=== PATIENT | male | born 1940 | race African-American/Black ===

== ENCOUNTER 2016-06-12 09:27 | Inpatient (IN) ==
[2016-06-12] MEDS ORDERED: D5 1/2 NS 500 ML IV ONE (09:30)
[2016-06-12] MEDS ORDERED: BOOSTRIX VACCINE IM ONE (09:31)
[2016-06-12] MEDS ORDERED: XYLOCAINE-MPF 1% INJ ONE (10:18)
--- NOTE | 2016-06-12 10:40 | Diag Imaging Result Document ---
PROCEDURE NAME: HEAD/C-SPINE W/O CONTRAST - 06/12/2016 CT HEAD WITHOUT CONTRAST: A dose-reduction protocol was used. COMPARISON: 05/01/2016. FINDINGS: There are atrophic changes and substantial chronic microvascular ischemic changes similar to the previous exam. 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 There is no discrete new infarct identified, although acute infarcts may not be immediately visible. There is subcutaneous soft tissue swelling at the left forehead. There is no evidence of intracranial hemorrhage, mass effect, or midline shift. There is no skull fracture. IMPRESSION: 1. Chronic ischemic changes similar to prior. 2. Soft tissue swelling at left forehead. No evidence of intracranial injury. No intracranial hemorrhage or mass effect. CT CERVICAL SPINE WITHOUT CONTRAST: A dose-reduction protocol was used. Axial, sagittal, and coronal images are obtained. COMPARISON: No comparison exam. FINDINGS: There is severe multilevel degenerative disease. There is associated mild multilevel spinal stenosis. There is no fracture or subluxation identified. There is no precervical soft tissue swelling identified. There are atherosclerotic calcifications noted at the bilateral carotid bulb regions. IMPRESSION: 1. Severe multilevel degenerative disease with multilevel mild spinal stenosis. 2. No evidence of fracture or subluxation.
--- NOTE | 2016-06-12 10:41 | Diag Imaging Result Document ---
PROCEDURE NAME: FACIAL BONES W/O CONTRAST - 06/12/2016 CT FACIAL BONES WITHOUT CONTRAST: TECHNIQUE: A dose reduction protocol was used. Axial and coronal images are obtained. No comparison exam. FINDINGS: There is soft-tissue swelling at the left periorbital region. There is no retrobulbar orbital hematoma identified. The globes of the orbits appear grossly intact. There is no fracture identified. There is mild paranasal sinus mucosal thickening. There is no substantial paranasal sinus fluid seen. There is some deviation of the anterior nasal septum to the left which is compatible with longstanding change. IMPRESSION: No evidence of fracture. Mild paranasal sinus disease noted.
--- NOTE | 2016-06-12 10:47 | Diag Imaging Result Document ---
PROCEDURE NAME: CHEST-PORTABLE - 06/12/2016 PORTABLE CHEST: COMPARISON: Compared to 05/15/2016. FINDINGS: Previously there was a right-sided PICC line. This has been removed. No contusions or pneumothoraces. The mediastinum is not widened. There are several old right rib fractures. No infiltrates or effusions. IMPRESSION: Negative chest.
[2016-06-12 12:45] LABS: MANUAL DIFF NEEDED? NO
[2016-06-12 12:52] LABS: BASO% 0.1 % (0.0-0.8); HEMATOCRIT 32.3 % (42.0-52.0); HEMOGLOBIN 10.6 g/dL (14.0-18.0); LYMPH# 1.06 X1000 (1.2-3.4); LYMPH% 12.2 % (20.5-51.1); MCH 27.2 PG (27-31); MCHC 32.8 g/dL (33-37); MONO# 0.62 X1000 (0.11-0.59); MONO% 7.1 % (1.7-9.3); MPV 11.2 FL (7.4-10.4); NEUT% 80.6 % (42.2-75.2); PLT 134 X1000 (130-400); RBC 3.89 XMIL (4.7-6.1)
[2016-06-12 13:01] LABS: INR 1.02; PROTIME 10.7 Seconds (9.2-11.7); PTT 26.3 Seconds (22.0-36.0)
[2016-06-12 13:04] LABS: ALBUMIN 3.2 g/dL (3.5-5.0); CALCIUM 8.6 mg/dL (8.8-10.2); MAGNESIUM 1.4 mg/dL (1.5-2.7); POTASSIUM 3.8 mmol/L (3.5-5.1); TOTAL BILIRUBIN 0.25 mg/dL (0.20-1.00); TOTAL PROTEIN 7.8 g/dL (6.3-8.3)
--- NOTE | 2016-06-12 13:13 | EKG Report ---
Test Performed on : 06/12/2016 12:40:58 PM Test Reason : Chest Pain Blood Pressure : / mmHG Vent. Rate : 104 BPM Atrial Rate : 104 BPM P-R Int : 120 ms QRS Dur : 072 ms QT Int : 350 ms P-R-T Axes : 078 078 075 degrees QTc Int : 460 ms Sinus tachycardia. Right atrial enlargement Cannot rule out Anterior infarct , age undetermined Abnormal ECG When compared with ECG of 03-MAY-2016 10:47, Vent. rate has decreased BY [address] no longer elevated in Inferior leads ST more elevated in Anterior leads Nonspecific T wave abnormality, improved in Anterolateral leads Unconfirmed Result
[2016-06-12 14:05] LABS: CK INDEX 3.2 (0.0-2.5); CK-MB 6.94 ng/mL (0.0-5.0)
--- NOTE | 2016-06-12 16:32 | PROVIDER DOCUMENTATION ---
This chart was entered by Anoop Jorge Scribe, acting as scribe for Ciara Booker MD. HPI-Head Injury - General Stated Complaint: FALL,LOW BLOOD SUGAR Time Seen by Provider: 06/12/16 09:28 Source: patient, family Allergies/Adverse Reactions: Patient Allergies Allergy/AdvReac Type Severity Reaction Status Date / Time No Known Allergies Allergy Verified 05/01/16 11:22 Home Medications: Home Medication List Medication Instructions Recorded Confirmed Last Taken Type Atorvastatin Calcium 40 mg PO DAILY 10/12/15 05/01/16 04/30/16 History Amlodipine [Norvasc] 10 mg PO DAILY #0 tablet 05/19/16 Unknown Rx Carvedilol [Coreg] 12.5 mg PO Q12HR #0 tablet 05/19/16 Unknown Rx Hydralazine [Apresoline] 75 mg PO TID #0 tablet 05/19/16 Unknown Rx Insulin Detemir [Levemir] 20 unit SUBQ DAILY #0 insuln.pen 05/19/16 Unknown Rx Pantoprazole [Protonix] 40 mg PO DAILY@0700 #30 tablet 05/19/16 Unknown Rx Sucralfate [Carafate Liquid] 1 gm PO Q6HR #0 udc 05/19/16 Unknown Rx Tramadol [Ultram] 50 mg PO Q6H PRN PRN #0 tablet 05/19/16 Unknown Rx Levofloxacin [Levaquin] 500 mg PO DAILY #30 tablet 05/20/16 Unknown Rx - History of Present Illness-Head Injury Nature of Presenting Problem: Patient is a 75 y/o M that presents to the ER via EMS after falling in the road while trying to check mail. He denies chest pain, palpitations, or shortness of breath. He tripped over his feet. EMS reported that his blood sugar was 31mg/ dl. He was given oral glucose which only emmett his blood sugar a few points. he was then given 1/2 amp D50W. patient has laceration above left eye and below left eye. Denies any loc Head Injury Location: reports: other (facial) Other injuries associated with incident:: reports: none Quality of Pain: reports: none Severity: reports: moderate Onset/Duration: reports: abrupt, just prior to arrival Timing: reports: improving Method of Injury: reports: direct blow, fell Any recent trauma/injury?: reports: none Loss of Consciousness: no loss of consciousness Modifying Factors: improves with: nothing Injury Associated Symptoms: denies: back/neck pain, chest pain, dizziness, joint pain, shortness of breath, pain with inspiration, vomiting, weakness Locality of Occurance: Other (the road) Similar Symptoms Previously?: No Recently seen or treated by another doctor?: No Review of Systems - Adult - REVIEW OF SYSTEMS - ADULT Constitutional: reports: no symptoms reported Eyes: denies: decreased vision, blurred vision, double vision Ears, Nose, Mouth & Throat: denies: ear discharge, ear pain, epistaxis Cardiovascular: denies: chest pain, palpitations, syncope Respiratory: reports: no symptoms reported Gastrointestinal: denies: abdominal pain, nausea, vomiting Genitourinary: denies: dysuria, frequency, flank pain, hematuria Musculoskeletal: denies: back pain, joint pain, neck pain Integumentary: reports: other (laceration). denies: hives, itching Neurological: reports: no symptoms reported Psychiatric: reports: no symptoms reported Endocrine: reports: no symptoms reported Hematologic/Lymphatic: reports: no symptoms reported Allergic/Immunologic: reports: no symptoms reported All Other Systems: Reviewed and Negative Past History - Adult - PAST MEDICAL HISTORY-ADULT Review of Records: reports: Old Records Reviewed, Nursing Assessment Review, Medications Reviewed Cardiovascular: reports: HTN, hyperlipidemia Respiratory: reports: COPD - PRIOR SURGERIES/PROCEDURES Surgical/Procedure History: reports: other (abdominal aortic aneursym) - IMMUNIZATION STATUS Childhood Immunizations: See Nurse Assessment Flu Vaccine: See Nurse Assessment - FAMILY HISTORY Family History: reviewed, not pertinent - SOCIAL HISTORY Smoking: cigarettes, less than 1 pack/day Living Situation: family Physical Exam- Neurological - Physical Exam-Neuro Initial Vital Signs Reviewed: Yes General Appearance: alert, no apparent distress Eye Exam: bilateral eye: normal inspection, PERRL HENMT: moist mucous membranes, normal ENT inspection, TMs normal Head Injury: lacerations (laceration to left upper cheek about 2.5 to 3 inches, laceration to left brow about 5 to 6 inches deep into adipose tissue). negative : raccoon eyes, tenderness Neck: non-tender, full range of motion, normal inspection Respiratory: chest non-tender, lungs clear, normal breath sounds, no respiratory distress, no accessory muscle use Cardiovascular: regular rate, rhythm, no edema, no murmur Abdominal Exam: normal bowel sounds, non tender, soft Extremity: normal range of motion, normal inspection, no pedal edema, no calf tenderness, normal capillary refill, pelvis stable service desk team lead Exam: normal hearing, normal speech, PERRL Motor/Sensory: no motor deficit, no sensory deficit Neurologic: grossly normal, no motor/sensory deficits Psych/Mental Status: normal mood/affect, normal thought content, normal thought process, oriented x 3 - Glascow Coma Scale Best Eye Response: (4) open spontaneously Best Verbal Response: (5) oriented Best Motor Response: (6) obeys commands Total Glascow Score: 15 Progress - PLAN OF CARE/RESULTS Progress/Plan/Lab Results: Vital Signs - 8 hr 06/12/16 10:13 06/12/16 11:13 06/12/16 12:45 Temperature 97.6 F Pulse Rate 105 H 101 H 107 H Respiratory Rate 16 12 14 Blood Pressure 196/113 O2 Sat by Pulse Oximetry 99 100 100 06/12/16 14:33 06/12/16 15:30 Temperature Pulse Rate 104 H 106 H Respiratory Rate 12 14 Blood Pressure O2 Sat by Pulse Oximetry 99 99 Laboratory Results - last 24 hr 06/12/16 06/12/16 06/12/16 12:00 12:00 12:00 WBC 8.68 RBC 3.89 L Hgb 10.6 L Hct 32.3 L MCV 83.0 MCH 27.2 MCHC 32.8 L RDW Std Deviation 14.7 H Plt Count 134 MPV 11.2 H Immature Gran % (Auto) 0.0 Neut % (Auto) 80.6 H Lymph % (Auto) 12.2 L [place] % (Auto) 7.1 Eos % (Auto) 0.0 Baso % (Auto) 0.1 Immature Gran # (Auto) 0.00 Neut # (Auto) 6.99 H Lymph # (Auto) 1.06 L [place] # (Auto) 0.62 H Eos # (Auto) 0.00 Baso # (Auto) 0.01 PT INR PTT (Actin FS) Sodium 133 L Potassium 3.8 Chloride 96 L Carbon Dioxide 22 L Anion Gap 15 BUN 19 Creatinine 1.6 H Estimated GFR/1.73 m2 51 BUN/Creatinine Ratio 12 Glucose 70 Calculated Osmolality 267 Calcium 8.6 L Magnesium 1.4 L Total Bilirubin 0.25 AST 26 ALT 14 Alkaline Phosphatase 137 H Creatine Kinase 217 H Creatine Kinase Index 3.2 H CK-MB (CK-2) 6.94 H Troponin T Nbc-W-Vzhwkrzgpzk Pept 7913 H Total Protein 7.8 Albumin 3.2 L Globulin 4.6 Albumin/Globulin Ratio 0.7 06/12/16 06/12/16 12:00 12:00 WBC RBC Hgb Hct MCV MCH MCHC RDW Std Deviation Plt Count MPV Immature Gran % (Auto) Neut % (Auto) Lymph % (Auto) [place] % (Auto) Eos % (Auto) Baso % (Auto) Immature Gran # (Auto) Neut # (Auto) Lymph # (Auto) [place] # (Auto) Eos # (Auto) Baso # (Auto) PT 10.7 INR 1.02 PTT (Actin FS) 26.3 Sodium Potassium Chloride Carbon Dioxide Anion Gap BUN Creatinine Estimated GFR/1.73 m2 BUN/Creatinine Ratio Glucose Calculated Osmolality Calcium Magnesium Total Bilirubin AST ALT Alkaline Phosphatase Creatine Kinase Creatine Kinase Index CK-MB (CK-2) Troponin T 0.020 Tst-Z-Gpllkradtjz Pept Total Protein Albumin Globulin Albumin/Globulin Ratio Orders Category Date Time Status Cardiac Monitoring DIRECTED Care 06/12/16 10:19 Active FSBS [Finger Stick Blood Sugar (ED)] DIRECTED Care 06/12/16 09:31 Active Saline Loc NOW Care 06/12/16 09:30 Active Saline Loc NOW Care 06/12/16 10:19 Active Suture Tray Set-Up DIRECTED Care 06/12/16 10:18 Active Wound Care DIRECTED Care 06/12/16 09:31 Active Diabetic Diet Diet 06/12/16 15:59 Active CHEST-PORTABLE [RAD] Stat Exams 06/12/16 09:30 Completed FACIAL BONES W/O CONTRAST [CT] Stat Exams 06/12/16 09:30 Completed HEAD/C-SPINE W/O CONTRAST [CT] Stat Exams 06/12/16 09:30 Completed CBC WITH ELECTRONIC DIFF [HEME] Stat Lab 06/12/16 12:00 Completed CK PROFILE [SP CHEM] Stat Lab 06/12/16 12:00 Completed COMPREHENSIVE METABOLIC PANEL [CHEM] Stat Lab 06/12/16 12:00 Completed MAGNESIUM [CHEM] Stat Lab 06/12/16 12:00 Completed PRO B-NATRIURETIC PEPTIDE Stat Lab 06/12/16 12:00 Completed PROTIME WITH INR [COAG] Stat Lab 06/12/16 12:00 Completed PTT [COAG] Stat Lab 06/12/16 12:00 Completed TROPONIN T Stat Lab 06/12/16 12:00 Completed UA NIMS W/REFLEX CULT [URINALYSIS] Stat Lab 06/12/16 10:19 Uncollected Dextrose 5%-0.45% NaCl Inj [D5 1/2 Ns] 500 ml Med 06/12/16 09:30 Discontinued IV 150 mls/hr Diph,Pertuss(Acell),Tet Vac/Pf [Boostrix Vaccine] Med 06/12/16 09:31 Discontinued 0.5 ml IM .ONCE ONE Lidocaine 1% Pf [Xylocaine-Mpf 1%] Med 06/12/16 10:18 Discontinued See Dose Instructions INJ NOW ONE EKG [EKG] Stat Ther 06/12/16 10:19 Draft Result Diagrams: 06/12/16 12:00 06/12/16 12:00 - EKG 1 Time of EKG reading by physician:: 12:40 EKG Read and Signed by:: Ciara Booker EKG Interpretation (*Must complete 3 of following elements*): Abnormal Rate: 104 Rhythm: Sinus tachycardia [place]: normal QRS: normal [place] Interval: normal ST Wave: non-specific ST changes Comments: YOS[facility] - CT/MRI 1 CT Study: Cervical Spine, Head Impression: Abnormal CT Results: head:chronic ischemic changes/no injury, cspine-no fx, sever DJD 2 CT Study: other (facial bones) Impression: Abnormal CT Results: no fx, mild paranasal sinus dx - CONSULTS/PCP/HOSPITALIST Notification #1 *Consult/PCP/Hospitalist*: Time Discussed: 16:25 Consult Disposition: Admit Procedures - LACERATION/WOUND REPAIR/FB Face Wound Location: Other: cheek below left eye Wound Length: 3.5c Wound's Depth, Shape: linear Wound Explored/Foreign Body: clean, no foreign body found Irrigated with Saline?: No Prepped with: Hibiclens, Kit Utilized, Sterile Drapes Applied Anesthetic: 1%, Lidocaine/Xylocaine Volume of Anesthetic (ml's): 8 Wound Repaired with: Sutures Suture Size/Type: 6.0, Nylon Number of Sutures: 4 Sterile Dressing Applied?: No Splint Applied?: No Sling Applied?: No Post Procedure Neurovascular Exam: Intact Left Eye Wound Location: Other: brow Wound Length: 6.5cm Wound's Depth, Shape: into muscle, linear Wound Explored/Foreign Body: clean, no foreign body found Irrigated with Saline?: No Prepped with: Hibiclens, Kit Utilized, Sterile Drapes Applied Anesthetic: 1%, Lidocaine/Xylocaine Volume of Anesthetic (ml's): 14 Wound Repaired with: Sutures Suture Size/Type: 6.0, Nylon Number of Sutures: 8 Layer Closure?: Yes Deep Layer Suture Size/Type: 5.0, Vicryl Number Deep Layer Sutures: 2 Sterile Dressing Applied?: No Splint Applied?: No Sling Applied?: No Post Procedure Neurovascular Exam: Intact Departure - Departure Time of Disposition Decision: 16:26 DIAGNOSIS: Elevated CK, Elevated CK-MB level Fall from standing Qualifiers: Encounter type: initial encounter Qualified Code(s): W19.XXXA - Unspecified fall, initial encounter Head injury without concussion or intracranial hemorrhage Qualifiers: Encounter type: initial encounter Qualified Code(s): S09.90XA - Unspecified injury of head, initial encounter Face lacerations Qualifiers: Encounter type: initial encounter Qualified Code(s): S01.81XA - Laceration without foreign body of other part of head, initial encounter Disposition: ADMITTED INPATIENT 09 Certified Medical Emergency: Emergent Condition: Stable Referrals and Follow-Ups: None,PCP [Primary Care Provider] - This chart was documented by the indicated scribe, (Anoop Jorge, Scribe) and accurately reflects the services I performed and decisions made by me, Ciara Booker MD, as attested by the provider's signature.
[2016-06-12] MEDS ORDERED: APRESOLINE IV ONE ×2 (17:44→18:10)
[2016-06-12] MEDS ORDERED: ULTRAM PO PRN (19:34)
[2016-06-12] MEDS: CARAFATE LIQUID PO SCH (20:00)
[2016-06-12] MEDS: NS 1,000 ML IV SCH (20:00)
[2016-06-12] MEDS: NICODERM PATCH TD SCH (20:00)
[2016-06-12 20:03] LABS: IRON SATURATION 14 %; TIBC 175 ug/dL; TOTAL IRON 24 ug/dL (53-167); UNBOUND IRON 151 ug/dL (112-346)
[2016-06-12 21:21] LABS: CK INDEX 2.6 (0.0-2.5); CK-MB 6.11 ng/mL (0.0-5.0)
[2016-06-12] MEDS: COREG PO SCH (22:05)
[2016-06-13] MEDS: CARAFATE LIQUID PO SCH ×4 (02:03→21:47)
--- NOTE | 2016-06-13 05:22 | HISTORY AND PHYSICAL ---
PRIMARY CARE PHYSICIAN: Dr. Sara Gordon. CHIEF COMPLAINT: Fall with head injury. HISTORY OF PRESENT ILLNESS: Mr. Michelle is a very pleasant, 75-year-old, male who was discharged from our service on 05/20/2016, approximately 1 month ago. At that time, he was admitted for respiratory failure, cardiac arrest, septic shock, and a gastrointestinal bleed. He was extremely sick at that time, requiring intubation. Fortunately, the patient made it through that admission and was discharged to [facility] and was ultimately discharged home around 1 week ago. He has been in his normal state of health. He was walking to his mailbox today to check the mail. He was using his walker and while he was walking, he apparently fell down and hit his head. He is unclear if he had a syncopal episode but he states that he felt his sugar was quite low, perhaps in the 30s. Then 911 was called and the patient came to the ER. He has a large bruise with stitches now around the left eye. He denies any visual disturbances. He denies any headache. A head and C-spine CT was done and did not show anything acute. His labs did show some mild anemia as well as renal insufficiency which is known to be chronic. He did have elevated cardiac enzymes with a normal troponin, with a proBNP of 7913. A chest x-ray was done in the ER and it did not show anything acute. The patient has no complaints at this time other than some mild pain around his left eye. He denied any chest pain or shortness of breath prior to his fall. He denies any abdominal pain, nausea, or vomiting. No lower extremity edema. No orthopnea. The patient is now going to be admitted for further treatment and evaluation. PAST MEDICAL HISTORY: 1. Diabetes mellitus. 2. Nicotine dependence. 3. Hypertension. 4. GERD. 5. Peptic ulcer disease. 6. Hyperlipidemia. 7. Left dorsal foot diabetic wound, followed by Dr. Israel. 8. Recent admission for sepsis, respiratory failure, and cardiac arrest. 9. History of abdominal aortic aneurysm, status post repair. 10. Gout. 11. COPD. 12. CKD III. SURGICAL HISTORY: He has had abdominal aortic aneurysm repair as well as recent right foot debridement by Dr. Israel. SOCIAL HISTORY: Patient smokes a pack a day. He denies alcohol or drug use. His and children are at the bedside. FAMILY HISTORY: Noncontributory. REVIEW OF SYSTEMS: Fourteen-point review of systems obtained and found to be negative with the exception of the HPI. ALLERGIES: No known drug allergies. HOME MEDICATIONS: Norvasc 10 mg daily, atorvastatin 40 mg daily, Coreg 12.5 mg q.12, Apresoline 75 mg t.i.d., Levemir 20 units subcutaneous daily, Protonix 40 mg daily, Carafate 1 g q.6 hours, Ultram 50 mg every 6 hours as needed for pain. PHYSICAL EXAMINATION: VITAL SIGNS: Blood pressure is 210/132, heart rate is 110, O2 saturations 99% on room air, respiratory rate is 16, temperature is 97.6 degrees. GENERAL: This is an elderly and chronically ill appearing, as well as frail, 75-year-old, male, lying in a hospital bed in no acute distress. NEUROLOGIC: The patient is awake and alert. He is slightly confused. He is unable to give the correct date but he does give the right year. He follows commands without focal deficits. HEENT: Patient has left orbit ecchymosis and edema as well as new stitching by the ER staff. No other obvious deformities or injuries noted. The pupils are equal, round, and reactive to light. His oral mucosa is moist. His trachea is midline. No JVD. CHEST: Clear to auscultation bilaterally. CV: Tachycardic but regular. S1 and S2 are noted. No murmurs, gallops, clicks, or rubs. GI: Soft, nondistended, nontender. Bowel sounds are positive. EXTREMITIES: No edema, clubbing, or cyanosis. Right foot does have a little bit larger than a half-dollar sized ulceration with tendon exposed. There is no eschar tissue and no signs of infection. Neurovascular is intact. DIAGNOSTIC DATA: Head and C-spine CT do not show any acute findings. There is soft tissue swelling of the left forehead. Cervical spine shows multilevel disk disease but no evidence of acute finding. Facial bone CT is negative for fracture. Chest x-ray does not show anything acute. His EKG shows sinus tachycardia, no acute ST or T abnormalities. WBC 8.68, hemoglobin 10.6, hematocrit 32.3, platelet count 134,000. INR 1.02. Sodium 133, potassium 3.8, chloride 96, CO2 22, anion gap 15, BUN 19, creatinine 1.6, glucose is 70, calcium 8.6, magnesium 1.4. Alkaline phosphatase 137. CK 217, CK index 3.2, CK-MB 6.94, troponin 0.02. ProBNP 7913. Albumin 3.2. ASSESSMENT AND PLAN: 1. Fall with head injury: Patient is not exhibiting any focal deficits. His head and cervical spine CT did not show anything acute but we are going to monitor him for any signs of concussion and any worsening head injury. We will continue neurological checks and monitor closely. 2. Syncope versus fall: Unclear if this was a syncopal episode secondary to hypoglycemia or an accidental trip and fall. Either way, the patient has had a recent cardiac workup when he was here for his respiratory failure. An echocardiogram revealed a normal ejection fraction with some diastolic dysfunction. He also had some left ventricular hypertrophy. We are going to trend his enzymes and monitor telemetry. 3. Elevated cardiac enzymes: The patient denies any chest pain and his electrocardiogram does not show anything acute. We will trend his enzymes and continue his home medications. 4. Chronic kidney disease stage III to IV: This is stable. He is below his historic baseline. We will continue to monitor. 5. Chronic anemia: It looks like his iron studies show some decrease in unsaturated iron binding. We will go ahead and recheck iron studies. 6. Chronic obstructive pulmonary disease: Not in exacerbation. We will continue to monitor. As needed nebulizers. 7. Hypertensive urgency: Intravenous medication as needed has been ordered and we will continue his home medications. No evidence of end-organ damage at this time. 8. Diabetes mellitus: The patient has been put on a dextrose drip. We will monitor his blood sugars closely and switch to normal saline when he is more stable. We have discussed that he also may need oral antidiabetics if he continues to have hypoglycemia causing altered consciousness. 9. Nicotine dependence: Patient has been advised to quit smoking. We will continue a nicotine patch and daily cessation education. 10. Right lower extremity wound ulceration: Appears healthy and without signs of infection. We are going to consult wound care and monitor closely. 11. Deep venous thrombosis prophylaxis with heparin. 12. Further recommendations to follow. Dictated by EDEN Castro for Stanislav Moser MD cc: Jeff J. EDEN George MD Marlin D. Gill, MD
[2016-06-13] MEDS ORDERED: D50W SYRINGE ONE (05:55)
[2016-06-13] MEDS: PROTONIX PO SCH (06:12)
[2016-06-13 06:22] LABS: HEMOGLOBIN 10.4 g/dL (14.0-18.0); MCH 27.7 PG (27-31); MCHC 32.5 g/dL (33-37); MCV 85.3 FL (81-99); MPV 10.8 FL (7.4-10.4); RBC 3.75 XMIL (4.7-6.1)
[2016-06-13 06:35] LABS: POTASSIUM 4.3 mmol/L (3.5-5.1)
[2016-06-13 06:36] LABS: CALCIUM 8.6 mg/dL (8.8-10.2)
[2016-06-13] MEDS ORDERED: D50W SYRINGE IV PRN (06:57)
[2016-06-13] MEDS: APRESOLINE PO SCH ×3 (11:15→18:40)
[2016-06-13] MEDS: LIPITOR PO SCH (11:16)
[2016-06-13] MEDS: NORVASC PO SCH (11:16)
[2016-06-13] MEDS: COREG PO SCH ×2 (11:16→21:47)
[2016-06-13] MEDS: NICODERM PATCH TD SCH (11:17)
[2016-06-13] MEDS: HEPARIN SUBQ SCH ×2 (11:17→21:47)
[2016-06-13] MEDS: NS 1,000 ML IV SCH ×2 (14:19→15:43)
--- NOTE | 2016-06-13 16:46 | PROGRESS NOTE ---
DATE: 06/13/2016 SUBJECTIVE: This patient states that he is feeling much better. He is complaining of mild pain at the level of his lesion at the level of the left orbit area. Otherwise he is feeling fine and he is tolerating p.o. OBJECTIVE: Vital Signs: Temperature 98.2 degrees, pulse 76, respiratory rate 20, blood pressure 168/86, oxygen saturation 98 on room air. HEENT: Head normocephalic. There is a left orbit ecchymosis and edema as well as new stitching. Does not look infected. No bleed. Neck: Supple. No JVD. No masses. Central trachea. Chest: Clear to auscultation bilaterally. Cardiovascular: RRR. No murmurs. Abdomen: Soft, nontender, nondistended. No hepatosplenomegaly. Extremities: No edema. No clubbing. No cyanosis. His right foot does have an ulcer with tendon exposure. There are no signs of infection or scar tissue. Neurological: The patient is alert. He is oriented x3. No focal deficits. LABORATORY: WBC 8.1, hemoglobin 10.4, hematocrit 32, platelets 144,000. Sodium 135. Potassium 4.3, chloride 99, bicarbonate 22. BUN 18, creatinine 1.4. Glucose at 6 a.m. 24 and at 9 a.m. 165 after treatment. Calcium 8.6. ASSESSMENT AND PLAN: 1. Fall with head injury. This patient has new stitches at the level of the left orbit. He is complaining of mild pain. He has some be edema but no signs of infection or bleed. We will continue with neurological checks and monitor closely. 2. Syncope versus fall. At this point, we are not clear about any syncopal episode. The problem is that he has been having hypoglycemia even though he is not on any sliding scale insulin or any insulin at all. I will continue to monitor this patient. He has been eating. I will continue also with telemetry. 3. Elevated cardiac enzymes. When he came the cardiac enzymes were 0.02, then increased to 0.06 and then 0.058 and now is 0.050. He is not complaining of chest pain or shortness of breath. I do not think this patient is having an PR. I will continue to monitor. 4. Chronic kidney disease, stage 3-4, stable. Continue. This is his baseline. 5. Chronic anemia. Continue to monitor. 6. COPD not in exacerbation. 7. Hypertensive urgency. This patient is still having high blood pressure that is better compared with admission. This patient is on carvedilol 12.5 mg p.o. q.12 hours and amlodipine 10 mg p.o. daily and hydralazine 75 mg p.o. t.i.d. I have stopped the normal saline and I will continue to monitor this patient. If the blood pressure is still high I will adjust the medications. 8. Type 2 diabetes. This patient is on insulin at home. I have stopped the insulin because his blood sugar has been low, inclusive in the low 20s. I will continue to monitor. 9. Hypoglycemia as above. 10. Nicotine dependence. This patient has been highly advised against cigarette smoking. I will continue with daily cessation education and nicotine patch. 11. Right lower extremity wound ulceration. Continue with wound care. 12. DVT prophylaxis. Continue with heparin. cc: Stanislav Moser MD
[2016-06-14] MEDS: CARAFATE LIQUID PO SCH ×4 (03:11→21:20)
[2016-06-14 06:10] LABS: HEMATOCRIT 29.6 % (42.0-52.0); HEMOGLOBIN 9.7 g/dL (14.0-18.0); MCH 27.6 PG (27-31); MCHC 32.8 g/dL (33-37); MCV 84.1 FL (81-99); MPV 11.3 FL (7.4-10.4); RBC 3.52 XMIL (4.7-6.1)
[2016-06-14] MEDS: PROTONIX PO SCH (06:37)
[2016-06-14 06:49] LABS: CALCIUM 8.3 mg/dL (8.8-10.2)
[2016-06-14] MEDS: NICODERM PATCH TD SCH (08:27)
[2016-06-14] MEDS: COREG PO SCH ×2 (08:27→21:22)
[2016-06-14] MEDS: APRESOLINE PO SCH ×3 (08:27→18:13)
[2016-06-14] MEDS: NORVASC PO SCH (08:27)
[2016-06-14] MEDS: LIPITOR PO SCH (08:27)
[2016-06-14] MEDS: HEPARIN SUBQ SCH ×2 (08:28→21:21)
--- NOTE | 2016-06-14 09:42 | CONSULTATION ---
DATE OF CONSULTATION: 06/14/2016 REASON FOR CONSULTATION: Right foot wound. HISTORY OF PRESENT ILLNESS: This is a 75-year-old male known to me from his prior admission for a wound on his dorsal right foot. He had been discharged to rehab at [facility] and then recently had a syncopal episode or hypoglycemic episode and fell and sustained a laceration to his forehead. He has been admitted for further evaluation and I have been asked to address his wound. On the prior admission he had undergone debridement at the bedside and in the operating room and we had been prescribed Santyl to be used once a day at discharge. I am not aware of specifically how his wound has been cared for at rehab and at home but in any case there was no history of infectious symptoms when he was admitted. He is very somnolent this morning and unable to give me much history. PAST MEDICAL HISTORY: Significant for chronic kidney disease, diabetes, hypertension, recent cardiac arrest, respiratory failure, and sepsis. PAST SURGICAL HISTORY: AAA repair and right foot debridement. SOCIAL HISTORY: He does smoke but no known alcohol or drug use. FAMILY HISTORY: Noncontributory. ALLERGIES: No known drug allergies. HOME MEDICATIONS: Norvasc, atorvastatin, Coreg, Apresoline, Levemir, Protonix, Carafate, and Ultram. REVIEW OF SYSTEMS: Review of systems are really unable to be obtained this morning as he is too somnolent. PHYSICAL EXAMINATION: VITAL SIGNS: Temperature 98.2, pulse 86, respirations 12-18, and blood pressure 149/84. GENERAL: He is somnolent but arousable. He does follow some commands but quickly falls back asleep. RESPIRATORY: No work of breathing. EXTREMITIES: His right foot wound was undressed and I found a clean granulating wound bed. It looks much improved from the prior admission. Basically the whole wound bed is granulating except for a small area of exposed extensor tendon. The wound covers most of the dorsum of his foot. LABORATORY DATA: White blood cell count is 6.9. ASSESSMENT AND PLAN: A 75-year-old male with multiple chronic medical problems with a recent fall and a chronic nonhealing wound on his right foot. The etiology of this wound is somewhat unclear. It was initially felt to be a arterial ulcer however since that time it has shown what appears to be reasonably good blood flow to the foot. 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 I would continue his current wound care initiated by our wound care nurse yesterday which is to clean with Vashe solution and apply Aquacel every other day and then wrap with Kerlix. After he is discharged he can follow up with me in the Wound Care Clinic and we may consider skin grafting if he is a suitable candidate at that time. cc: Farshad Israel MD
[2016-06-14 10:08] LABS: HEMOGLOBIN A1C 6.2 % (4.8-6.0)
[2016-06-14] MEDS ORDERED: MAGNESIUM SULFATE 2 GM/S.W.I. 2 GM/50 ML IVPB IV ONE (13:02)
--- NOTE | 2016-06-14 14:41 | PROGRESS NOTE ---
DATE: 06/14/2016 SUBJECTIVE: This patient is feeling better. He is complaining of mild pain at the level of his lesion that is located at the left orbit area. Otherwise, he is feeling fine and he is tolerating p.o. OBJECTIVE: Vital Signs: Temperature 98.2 degrees, pulse 86, respiratory rate 12, blood pressure 149/84, oxygen saturation 100% on room air. HEENT: Head normocephalic. There is left orbit ecchymosis and edema as well as new stitching. It does not look infected. No bleed. PERRLA. Neck: Supple. No JVD. No masses. Central trachea. Chest: Clear to auscultation. No wheezing. No rales. Abdomen: Soft, nontender, nondistended. No hepatosplenomegaly. Extremities: No edema. No clubbing. No cyanosis. His right foot does have an ulcer with tendon exposure and there is no sign of infection or eschar tissue. Neurological: The patient is alert and oriented x3. No focal neurological deficits. LABORATORY: WBC 6.9, hemoglobin 9.7, hematocrit 29.6, platelets 155,000. Sodium 129, potassium 4, chloride 99, bicarbonate 18, BUN 21, creatinine 1.4, glucose 94. Hemoglobin A1c 6.2. Calcium 8.3. Magnesium 1.3. ASSESSMENT AND PLAN: 1. Fall with head injury. This patient has new stitches at the level of the left orbit. He is complaining of mild pain in that area, mostly on palpation. He has some edema, but no signs of infection or bleed. We will continue with neurologic checks and monitor this patient closely. 2. Syncopal episode versus fall. At this point, we are not clear if this patient had any kind of syncopal episode. The problem is that he has been having also hypoglycemia. I have stopped all the insulin together and I will continue to monitor this patient at least 24 more hours. 3. Elevated cardiac enzymes. Cardiac enzymes have been a little bit elevated, but compared with the previous hospitalization it is much better. He is not complaining of chest pain and the cardiac enzymes are not increasing at this point. I will get an EKG in the morning to compare that one with the one done on this admission. 4. Chronic kidney disease, stage 3-4, stable. This is his baseline. 5. Chronic anemia. Continue to monitor. 6. Chronic obstructive pulmonary disease, not in exacerbation. 7. Hypertension. Continue with the same monitoring and treatment. 8. Type 2 diabetes. This patient is on insulin at home. I have stopped the insulin because his blood sugar has been low, inclusive in the low 20s. We will continue to monitor the blood sugar at least for 24 more hours. Like I said before, he is not on any insulin. 9. Hypoglycemia, as above. 10. Nicotine dependence. This patient has been highly advised against cigarette smoking. I will continue with daily cessation education and nicotine patch. 11. Right lower extremity wound ulceration. This patient has been evaluated by Dr. Israel. For now, will continue with wound care and he recommended to follow up with him as an outpatient. At [facility]. 12. Deep vein thrombosis prophylaxis. Continue with the same management. cc: Stanislav Moser MD
[2016-06-14 18:09] LABS: URINE CULTURE NEEDED? NO; URINE MICRO REVIEW NEEDED? NO; URINE SOURCE CLEAN CATCH
[2016-06-14 18:12] LABS: BILIRUBIN URINE NEGATIVE (NEGATIVE); BLOOD URINE NEGATIVE (NEGATIVE); COLOR YELLOW; GLUCOSE URINE NEGATIVE (NEGATIVE); LEUKOCYTES URINE NEGATIVE (NEGATIVE); NITRITE URINE NEGATIVE (NEGATIVE); PH URINE 5.5; PROTEIN URINE 30 mg/dL (NEGATIVE); SP GRAVITY URINE 1.008; TURBIDITY URINE HAZY (CLEAR); UR EPITHELIAL CELLS <10 /HPF (<10); URINE BACTERIA NEGATIVE /HPF; URINE RBC <10 /HPF (<10); URINE WBC <10 /HPF (<10); UROBILINOGEN URINE NORMAL (NORMAL)
[2016-06-15] MEDS: CARAFATE LIQUID PO SCH ×2 (01:16→11:03)
[2016-06-15 06:37] LABS: MANUAL DIFF NEEDED? NO
[2016-06-15 06:41] LABS: BASO% 0.2 % (0.0-0.8); EOS# 0.12 X1000 (0.0-0.7); EOS% 1.8 % (0.0-10.0); HEMATOCRIT 29.8 % (42.0-52.0); HEMOGLOBIN 9.8 g/dL (14.0-18.0); LYMPH# 1.93 X1000 (1.2-3.4); LYMPH% 29.2 % (20.5-51.1); MCH 27.1 PG (27-31); MCHC 32.9 g/dL (33-37); MCV 82.5 FL (81-99); MONO# 0.54 X1000 (0.11-0.59); MONO% 8.2 % (1.7-9.3); MPV 10.9 FL (7.4-10.4); NEUT% 60.6 % (42.2-75.2); PLT 158 X1000 (130-400); RBC 3.61 XMIL (4.7-6.1)
[2016-06-15] MEDS: PROTONIX PO SCH (06:41)
[2016-06-15 07:03] LABS: CALCIUM 8.4 mg/dL (8.8-10.2); POTASSIUM 4.3 mmol/L (3.5-5.1)
[2016-06-15 10:59] VITALS: BP 162/85
[2016-06-15] MEDS: HEPARIN SUBQ SCH (11:02)
[2016-06-15] MEDS: NICODERM PATCH TD SCH (11:02)
[2016-06-15] MEDS: COREG PO SCH (11:03)
[2016-06-15] MEDS: LIPITOR PO SCH (11:03)
[2016-06-15] MEDS: APRESOLINE PO SCH (11:03)
[2016-06-15] MEDS: NORVASC PO SCH (11:03)
--- NOTE | 2016-06-15 19:17 | DISCHARGE SUMMARY ---
ADMISSION DATE: 06/12/2016 DISCHARGE DATE: 06/15/2016 ADMISSION DIAGNOSES: 1. Fall with head injury. 2. Questionable syncope. 3. Elevated cardiac enzymes. 4. Chronic kidney disease 4. 5. Chronic anemia. 6. Chronic obstructive pulmonary disease. 7. Hypertensive urgency. 8. Diabetes mellitus. 9. Nicotine dependence. 10. Right lower extremity wound ulceration. DISCHARGE DIAGNOSES: 1. Fall with head injury. 2. Questionable syncope. 3. Elevated cardiac enzymes. 4. Chronic kidney disease 4. 5. Chronic anemia. 6. Chronic obstructive pulmonary disease. 7. Hypertensive urgency. 8. Diabetes mellitus. 9. Nicotine dependence. 10. Right lower extremity wound ulceration. CONSULTATIONS: Dr. Farshad Israel with surgery. DIAGNOSTIC PROCEDURES AND FINDINGS: Chest x-ray done on 06/12/2016 shows negative chest. Facial bone CT done on 06/12/2016 shows no evidence of fracture, mild paranasal sinus disease is noted. Head and cervical spine CT done on 06/12/2016 shows multilevel degenerative disease with mild spinal stenosis, no evidence of fracture subluxation. Head CT shows chronic ischemic changes, soft tissue swelling at the left forehead, no evidence of intracranial injury. EKG done on 06/12/2016 shows sinus tachycardia without acute ST or T abnormalities. HOSPITAL COURSE: Mr. Holland is a 75-year-old male who has a significant history, he was at our facility 1-2 months ago for respiratory failure, cardiac arrest and sepsis. He was extubated and ultimately discharged to [facility]. After that he came home and had a fall at which time he was not sure if it was a trip and fall or syncopal episode. However he hit the left side of his forehead fairly significantly and came to the ER for evaluation. He required stitches in the ER and a head CT and cervical spine CT did not show anything acute. Facial bone CT was also negative for fracture. We trended his enzymes and they ultimately were found to be negative. Dr. Israel was consulted for a left lower extremity diabetic wound. He recommended continued wound care and followup in wound Care Clinic. All of his other chronic conditions were managed appropriately. He has no neurologic deficits. His vitals are stable and he is now stable for discharge home. MEDICATIONS: Norvasc 10 mg daily, atorvastatin 40 mg daily, carvedilol 12.5 mg every 6 hours, hydralazine 75 mg p.o. t.i.d., Protonix 40 mg daily, Carafate 1 g every 6 hours , tramadol 50 mg every 6 hours, we discontinued his subcutaneous insulin given the episodes of hypoglycemia. DISCHARGE PHYSICAL EXAMINATION: General: This is a elderly 75-year-old male lying in hospital bed, no acute distress. Neurologic: He is awake, alert and oriented. He follows commands without focal deficits. HEENT: Left orbital ecchymosis noted with stitching improved from admission otherwise atraumatic and normocephalic. His pupils are equal, round, reactive to light. Oral mucosa is moist. Trachea is midline. Chest: Diminished at the bases but clear to auscultation bilaterally. CV: Regular rate and rhythm. S1-S2 is noted. GI: Soft, nondistended, nontender. Bowel sounds positive. Extremities: No edema, clubbing or cyanosis. Pulses are palpable bilaterally. DISCHARGE LABS: WBC 6.61, hemoglobin 9.8, hematocrit 29.8, platelet count 158, 000. Sodium 133, potassium 4.3, chloride 100, CO2 22, anion gap 11, BUN 27, creatinine 1.6, glucose is 98, calcium 8.4. DISCHARGE DIET: Diabetic. DISCHARGE ACTIVITY: Resume activity as tolerated. DISPOSITION AND DISCHARGE INSTRUCTIONS: Patient discharged home to self-care. He is to follow up with his PCP within the next week. He is to discontinue his subcutaneous insulin and discuss with his PCP possible oral antidiabetics. We have encouraged him to quit smoking and have directed him toward nicotine replacement therapy if needed. He is to return to the ER or call 911 for any worsening complaints. All questions have been answered. DISCHARGE TIME: Is greater than 35 minutes. Dictated by EDEN Castro for Braxton Vergara MD cc: Farshad Israel MD Addendum: I personally evaluated and examined the patient in conjunction to the [facility] and agreed with his assessment and disposition. He was instructed to see his PCP back in 7-10 days for suture removal. KELVIN
--- NOTE | 2016-06-17 06:02 | EKG Report ---
Test Performed on : 06/15/2016 06:14:20 AM Test Reason : elevated troponins Blood Pressure : / mmHG Vent. Rate : 083 BPM Atrial Rate : 083 BPM P-R Int : 130 ms QRS Dur : 072 ms QT Int : 388 ms P-R-T Axes : 075 074 065 degrees QTc Int : 455 ms Normal sinus rhythm. Right atrial enlargement Nonspecific T wave abnormality Abnormal ECG When compared with ECG of 12-JUN-2016 12:40, (Unconfirmed) Nonspecific T wave abnormality now evident in Inferior leads Confirmed by Noah LEHMAN, Primitivo Doyle ([id number]) on 06/17/2016 9:01:43 AM
== END 2016-06-15 15:12 | disposition home or self-care (01) ==
LOC: ED 09:27 → EDIPHOLD 18:43 → SUATTDRO 18:43 → 4N 20:49
PROVIDERS: ATTEND Internal Medicine

== ENCOUNTER 2016-07-14 10:45 | Inpatient (IN) ==
[2016-07-14] MEDS ORDERED: NS 1,000 ML IV ONE ×2 (11:07→13:55)
--- NOTE | 2016-07-14 11:17 | Diag Imaging Result Doc PS360 ---
EXAM: HEAD W/O CONTRAST HISTORY: syncope TECHNIQUE: CT of the head without contrast with dose reduction (clarity.) COMMENT: There is marked generalized cerebral atrophy and extensive abnormal lucency throughout the white matter both hemispheres. There are lacunae in the basal ganglia and thalami bilaterally. There is also a lacunar encephalomalacia present in the left and right cerebellar hemispheres. The posterior fossa abnormalities particularly those in the right cerebellar hemisphere were not appreciable on the previous study of 06/12/2016. There may also be small lacunae in the jony which were probably present time the previous study. No evidence of mass effect or bleed is present. There is fluid in multiple mastoid air cells on the right. This is not changed significantly since the previous study. No acute bony abnormalities are present. IMPRESSION: Chronic ischemic microvascular disease which has apparently progressed slightly particularly with regard to the right cerebellar hemisphere since the previous study of 06/12/2016. Electronically signed by Hardik Grullon 07/14/2016 11:14 AM
[2016-07-14 11:23] LABS: ALLEN TEST YES; BLOOD TYPE ARTERIAL; DRAW SITE R RADIAL; METHB 0.8 % (0.0-1.5); O2(CT) 12.4 mL/dL (15.0-23.0); PCO2(98.6) 22 mmHg (35-45); PO2(98.6) 94 mmHg (60-100); SAMPLE BLOOD; SAO2 98.5 % (95.0-100.0); pH(98.6) 7.46 (7.35-7.45)
--- NOTE | 2016-07-14 11:23 | PROVIDER DOCUMENTATION ---
This chart was entered by Joann Steele Scribe, acting as scribe for Ciara Booker MD. HPI-General Adult - General Stated Complaint: UNRESPONSIVE Time Seen by Provider: 07/14/16 10:54 Source: patient, family, EMS Allergies/Adverse Reactions: Patient Allergies Allergy/AdvReac Type Severity Reaction Status Date / Time No Known Allergies Allergy Verified 05/01/16 11:22 Home Medications: Home Medication List Medication Instructions Recorded Confirmed Last Taken Type Atorvastatin Calcium 40 mg PO DAILY 10/12/15 06/12/16 04/30/16 History Amlodipine [Norvasc] 10 mg PO DAILY #0 tablet 05/19/16 06/12/16 Unknown Rx Carvedilol [Coreg] 12.5 mg PO Q12HR #0 tablet 05/19/16 06/12/16 Unknown Rx Hydralazine [Apresoline] 75 mg PO TID #0 tablet 05/19/16 06/12/16 Unknown Rx Pantoprazole [Protonix] 40 mg PO DAILY@0700 #30 tablet 05/19/16 06/12/16 Unknown Rx Sucralfate [Carafate Liquid] 1 gm PO Q6HR #0 udc 05/19/16 06/12/16 Unknown Rx Tramadol [Ultram] 50 mg PO Q6H PRN PRN #0 tablet 05/19/16 06/12/16 Unknown Rx Levofloxacin [Levaquin] 500 mg PO DAILY #30 tablet 05/20/16 06/12/16 Unknown Rx Insulin Detemir [Levemir] 15 unit SUBQ DAILY #0 insuln.pen 06/15/16 06/12/16 Unknown Rx - History of Present Illness -Gen Adult Nature of Presenting Problems: 75 year old male presents to the ER via EMS after becoming unresponsive while eating breakfast. When EMS arrived pt was alert and answering questions. Pt had heart attack two months ago. Pt has extensive medical history. Onset/Duration: reports: just prior to arrival Review of Systems - Adult - REVIEW OF SYSTEMS - ADULT Constitutional: denies: chills, fever Eyes: reports: no symptoms reported Ears, Nose, Mouth & Throat: reports: no symptoms reported Cardiovascular: reports: no symptoms reported Respiratory: reports: no symptoms reported Gastrointestinal: reports: no symptoms reported Genitourinary: reports: no symptoms reported Musculoskeletal: reports: no symptoms reported Integumentary: reports: no symptoms reported Neurological: reports: no symptoms reported Psychiatric: reports: no symptoms reported Endocrine: reports: no symptoms reported Hematologic/Lymphatic: reports: no symptoms reported Allergic/Immunologic: reports: no symptoms reported All Other Systems: Reviewed and Negative Past History - Adult - PAST MEDICAL HISTORY-ADULT Review of Records: reports: Nursing Assessment Review, Medications Reviewed Major Childhood Illnesses: reports: denies history Cardiovascular: reports: HTN, hyperlipidemia Respiratory: reports: COPD Gastrointestinal: reports: denies history Genitourinary: reports: denies history Musculoskeletal: reports: denies history Neurological: reports: denies history Psychiatric: reports: denies history Endocrine/Immune: reports: denies history - PRIOR SURGERIES/PROCEDURES Surgical/Procedure History: reports: other (abdominal aortic aneursym) - IMMUNIZATION STATUS Childhood Immunizations: See Nurse Assessment Flu Vaccine: See Nurse Assessment - FAMILY HISTORY Family History: reviewed, not pertinent Physical Exam-General - CONSTITUTIONAL General Appearance: alert, no apparent distress - EYES Eyes: PERRL/EOMI, pink conjunctivae - HEAD, EARS, NOSE, MOUTH & THROAT HENMT: normocephalic/atraumatic, moist mucous membranes - NECK Neck: non-tender, normal inspection - RESPIRATORY Respiratory: lungs clear, normal breath sounds - CARDIOVASCULAR Cardiovascular: normal peripheral pulses, regular rate, rhythm - MUSCULOSKELETAL Back Exam: no CVA tenderness, no vertebral tenderness Extremity: normal range of motion, normal inspection - SKIN Integumentary: normal color, warm/dry - NEUROLOGIC Neurologic: grossly normal, no motor/sensory deficits. negative: focal weakness - PSYCHIATRIC Psych/Mental Status: normal mood/affect, normal thought content, normal thought process, oriented x 3 Progress - PLAN OF CARE/RESULTS Progress/Plan/Lab Results: Vital Signs - 8 hr 07/14/16 11:10 Temperature 97.6 F Pulse Rate 101 H Respiratory Rate 16 Blood Pressure 87/42 O2 Sat by Pulse Oximetry 97 Orders Category Date Time Status Cardiac Monitoring DIRECTED Care 07/14/16 11:07 Active Finger Stick Blood Sugar (ED) DIRECTED Care 07/14/16 11:07 Active Oxygen Therapy- ED Nursing DIRECTED Care 07/14/16 11:07 Active Saline Loc NOW Care 07/14/16 11:07 Active CHEST-PORTABLE [RAD] Stat Exams 07/14/16 11:07 Ordered HEAD W/O CONTRAST [CT] Stat Exams 07/14/16 10:46 Taken ABG [RESP] Routine Lab 07/14/16 11:07 Ordered ALCOHOL BLOOD Stat Lab 07/14/16 11:07 Uncollected BLOOD CULTURE [BLDCUL] Stat Lab 07/14/16 11:07 Uncollected CBC WITH ELECTRONIC DIFF [HEME] Stat Lab 07/14/16 11:07 Uncollected CK PROFILE [SP CHEM] Stat Lab 07/14/16 11:07 Uncollected COMPREHENSIVE METABOLIC PANEL [CHEM] Stat Lab 07/14/16 11:07 Uncollected LACTATE, PLASMA [CHEM] Stat Lab 07/14/16 11:07 Uncollected LIPASE [CHEM] Stat Lab 07/14/16 11:07 Uncollected MAGNESIUM [CHEM] Stat Lab 07/14/16 11:07 Uncollected PRO B-NATRIURETIC PEPTIDE Stat Lab 07/14/16 11:07 Uncollected PROTIME WITH INR [COAG] Stat Lab 07/14/16 11:07 Uncollected PTT [COAG] Stat Lab 07/14/16 11:07 Uncollected TROPONIN T Stat Lab 07/14/16 11:07 Uncollected URINALYSIS W/POSS RFLX CULT-1 [URINALYSIS] Stat Lab 07/14/16 11:07 Uncollected URINE DRUG SCREEN Stat Lab 07/14/16 11:07 Uncollected 0.9% Sodium Chloride Inj [Ns] 1,000 ml Med 07/14/16 11:07 Active IV 250 mls/hr Pulse Oximetry Stat Oth 07/14/16 11:07 Active EKG [EKG] Stat Ther 07/14/16 11:07 Ordered Result Diagrams: 07/14/16 10:40 07/14/16 10:40 - REASSESSMENT Reassessment #1 Time Reassessed: 12:19 Status: other (Pt lost bowel control on CT table. Stool smell C. diff. Dr. Bess informed. Will order C.diff test) - EKG 1 Time of EKG reading by physician:: 11:04 EKG Read and Signed by:: Ciara Booker EKG Interpretation (*Must complete 3 of following elements*): Abnormal Rate: 97 Rhythm: sinus rhythm with short IL Comments: right atrial enlargement, borderline ECG - CT/MRI 1 CT Study: Head, Neck - CONSULTS/PCP/HOSPITALIST Notification Time Discussed: 12:12 Reason/Comments: Admit to hospitalist, Dr. Bess Consult Disposition: Admit Departure - Departure Time of Disposition Decision: 12:12 DIAGNOSIS: Syncope, Hypotension Disposition: ADMITTED INPATIENT 09 Certified Medical Emergency: Emergent Condition: Stable Referrals and Follow-Ups: None,PCP [Primary Care Provider] - - Critical Care Note This patient required my direct & personal management of CC.: No This chart was documented by the indicated scribe, (Joann Steele, Scribe) and accurately reflects the services I performed and decisions made by me, Ciara Booker MD, as attested by the provider's signature.
[2016-07-14 11:30] LABS: MODALITY ROOM AIR
[2016-07-14 11:32] LABS: MANUAL DIFF NEEDED? NO
[2016-07-14] MEDS ORDERED: ZOSYN 3.375 GM/NS 3.375 GM/50 ML IVPB IV ONE (11:39)
[2016-07-14] MEDS ORDERED: VANCOMYCIN 1 GM/NS 1 GM/250 ML IVPB IV ONE (11:39)
[2016-07-14 11:41] LABS: BASO% 0.4 % (0.0-0.8); EOS# 0.02 X1000 (0.0-0.7); EOS% 0.8 % (0.0-10.0); HEMATOCRIT 28.5 % (42.0-52.0); HEMOGLOBIN 9.5 g/dL (14.0-18.0); LYMPH# 0.83 X1000 (1.2-3.4); LYMPH% 33.6 % (20.5-51.1); MCH 26.8 PG (27-31); MCHC 33.3 g/dL (33-37); MCV 80.3 FL (81-99); MONO# 0.05 X1000 (0.11-0.59); MPV 11.1 FL (7.4-10.4); NEUT% 63.2 % (42.2-75.2); PLT 230 X1000 (130-400); RBC 3.55 XMIL (4.7-6.1)
--- NOTE | 2016-07-14 11:41 | Diag Imaging Result Doc PS360 ---
EXAM: CHEST-PORTABLE HISTORY: AMS TECHNIQUE: Portable upright at 1115 COMMENT: There are old healed rib fractures on the right. The lungs appear to be clear and unchanged since 06/12/2016. The heart size and primary vascularity are within normal limits. There is some increased density in the right paratracheal region which was also present time the previous study. This is likely due to tortuosity of the right subclavian artery as seen on the CT of the cervical spine dated 06/12/2016. IMPRESSION: No acute disease. Electronically signed by Hardik Grullon 07/14/2016 11:39 AM
[2016-07-14 11:46] LABS: INR 1.13; PTT 22.5 Seconds (22.0-36.0)
[2016-07-14 12:03] LABS: ALBUMIN 2.4 g/dL (3.5-5.0); CALCIUM 8.2 mg/dL (8.8-10.2); MAGNESIUM 1.3 mg/dL (1.5-2.7); POTASSIUM 4.3 mmol/L (3.5-5.1); TOTAL BILIRUBIN 0.38 mg/dL (0.20-1.00); TOTAL PROTEIN 6.6 g/dL (6.3-8.3)
[2016-07-14 13:22] LABS: URINE CULTURE NEEDED? NO; URINE MICRO REVIEW NEEDED? NO; URINE SOURCE CATH
[2016-07-14 13:32] LABS: BILIRUBIN URINE NEGATIVE (NEGATIVE); BLOOD URINE NEGATIVE (NEGATIVE); COLOR YELLOW; GLUCOSE URINE NEGATIVE (NEGATIVE); LEUKOCYTES URINE NEGATIVE (NEGATIVE); NITRITE URINE NEGATIVE (NEGATIVE); PROTEIN URINE 50 mg/dL (NEGATIVE); TURBIDITY URINE CLEAR (CLEAR); UROBILINOGEN URINE NORMAL (NORMAL)
[2016-07-14 13:33] LABS: UR EPITHELIAL CELLS <10 /HPF (<10); URINE BACTERIA NEGATIVE /HPF; URINE RBC <10 /HPF (<10); URINE WBC <10 /HPF (<10)
[2016-07-14 13:43] LABS: UR AMPHETAMINES QUAL NONE DETECTED (NONE DETECT); UR BARBITUATES QUAL NONE DETECTED (NONE DETECT); UR BENZODIAZEPIN QUAL NONE DETECTED (NONE DETECT); UR CANNABINOIDS QUAL NONE DETECTED (NONE DETECT); UR COCAINE QUAL NONE DETECTED (NONE DETECT); UR METHADONE QUAL NONE DETECTED (NONE DETECT); UR OPIATES QUAL NONE DETECTED (NONE DETECT); UR OXYCODONE QUAL NONE DETECTED (NONE DETECT); UR PCP QUAL NONE DETECTED (NONE DETECT)
[2016-07-14] MEDS ORDERED: MAGNESIUM SULFATE 4 GM/S.W.I. 4 GM/100 ML IVPB IV ONE (13:58)
[2016-07-14] MEDS ORDERED: NS 1,300 ML IV ONE (15:25)
--- NOTE | 2016-07-14 16:02 | Diag Imaging Result Doc PS360 ---
EXAM: ABDOMEN FLAT/UPRIGHT HISTORY: sepsis TECHNIQUE: Portable flat and upright at 1554 COMMENT: There is a nonspecific colonic and small bowel gas pattern. There is some gas in the fundus of the stomach. There is less stool throughout the colon than on 10/12/2015. Otherwise the appearance of the abdomen has not changed appreciably. There is extensive atherosclerotic calcification. Visualized portions of the chest are stable in appearance. IMPRESSION: Nonspecific abdomen. Electronically signed by Hardik Grullon 07/14/2016 4:00 PM
[2016-07-14] MEDS ORDERED: DUONEB (A & A) INH PRN (16:20)
[2016-07-14] MEDS ORDERED: VANCOMYCIN IV PER PHARMACY MISC SCH (16:20)
[2016-07-14] MEDS: DUONEB (A & A) INH SCH ×3 (16:28→22:44)
[2016-07-14] MEDS: NICODERM PATCH TD SCH (19:37)
[2016-07-14] MEDS ORDERED: VANCOMYCIN 500 MG/NS 500 MG/100 ML IVPB IV ONE (20:00)
--- NOTE | 2016-07-14 20:48 | HISTORY AND PHYSICAL ---
MECHANICAL PRODUCT DESIGN ENGINEER: Dr. Keller. PRIMARY CARE PHYSICIAN: Dr. Sara Gordon. CHIEF COMPLAINT: Syncopal episode. HISTORY OF PRESENT ILLNESS: Mr. Michelle is a 75-year-old male, who is well-known to our service. He was last discharged on 06/15/2016. At that time, he was discharged with questionable syncopal episode, with fall and head injury. At that time, he had a fairly extensive workup, which did not show anything acute. He comes in today after he was sitting at the breakfast table eating breakfast with his family, and he essentially had a loss of consciousness. He had a blank stare, and then went minimally responsive, and finally he became diaphoretic. At that time, EMS was called. The patient has recently started lisinopril 2.5 mg daily for renal protection, per Dr. Keller. Family states that his systolic blood pressures have been running in the 90s. When he got to the ER today, his blood pressure was 87/42. Labs and diagnostics were done. A head CT did not show anything acute, but his lactic acid was noted to be 6.6 and he has spiked a fever of 101.5 consistent with sepsis although he does not have an elevated white count. His chest x-ray does not show any signs of infection, his urine is clean. He has been given IV fluids. He has had mcintyre cultures in the ER and started on broad-spectrum antibiotics. Currently, his blood pressure was last recorded at 108/70. He is now going to be admitted for further treatment and evaluation. PAST MEDICAL HISTORY: 1. CKD 4, followed by Dr. Keller. 2. Left dorsal foot diabetic wound, followed by Dr. Israel, with plans for a skin grafting in the next 2 weeks. 3. Hypertension. 4. GERD. 5. Peptic ulcer disease. 6. Hyperlipidemia. 7. Relatively recent admission within the past few months for cardiac arrest, respiratory failure, and sepsis. 8. History of abdominal aortic aneurysm. 9. COPD. 10. Gout. PAST SURGICAL HISTORY: Abdominal aortic aneurysm repair. Right foot debridement by Dr. Israel. SOCIAL HISTORY: Patient continues to smoke. There is no alcohol or drug use. Family is at the bedside. REVIEW OF SYSTEMS: Unable to obtain secondary to neurological status. ALLERGIES: No known drug allergies. HOME MEDICATIONS: Currently being compiled. PHYSICAL EXAMINATION: VITAL SIGNS: Blood pressure is 108/70, heart rate 110, respiratory rate 21, O2 saturation 100% on room air. Temperature is 101.5 degrees. GENERAL: This is a frail, elderly, 75-year-old male, lying in the hospital bed in no acute distress. NEUROLOGIC: The patient will open his eyes to verbal stimulus, but he is confused. He does follow commands, without any overt focal deficits. HEENT: Head is atraumatic and normocephalic. His pupils are pinpoint bilaterally. Oral mucosa is dry. Trachea is midline. Neck is supple. There is no JVD. CHEST: Clear to auscultation bilaterally. Diminished at the bases. CARDIOVASCULAR: Regular rate and rhythm. S1-S2 is noted. GASTROINTESTINAL: Soft, nondistended, nontender. Bowel sounds are positive. EXTREMITIES: No edema, clubbing, or cyanosis. Pulses palpable, but diminished bilaterally. DIAGNOSTIC DATA: Head CT shows chronic changes, but nothing acute. Chest x- ray shows no acute disease. EKG shows normal sinus rhythm, with a diffuse nonspecific T-wave flattening. LABORATORY DATA: WBC 2.47. Hemoglobin is 9.5, hematocrit 28.5, platelet count 230. INR 1.13. ABG on room air, pH 7.46, CO2 22, O2 94, bicarbonate 19.5. Lactate 6.1. Sodium 135, potassium 4.3, chloride 99, CO2 19. Anion gap 17. BUN 20, creatinine 2.2. Glucose is 123. Calcium 8.2, magnesium 1.3. Total bilirubin 0.38. AST 27, ALT 25, alkaline phosphatase 141. Initial CK and troponins are negative. ProBNP 3728. Albumin 2.4, lactate 6.6. UA is negative. Toxicology is negative. ASSESSMENT AND PLAN: 1. Syncopal episode: Unclear as to the exact etiology at this time, although the patient apparently has had multiple episodes of this in the past. His head CT does not show anything acute. We will presume at this time that he has been hypotensive, which caused his episode. We will stop antihypertensives for now and hydrate, being cautious with his chronic kidney disease and diastolic heart failure. We will check neurological status. We will also go ahead and order an MRI in the morning, as that has not been done as of yet. 2. Sepsis (Suspected): Source is unclear. Mcintyre cultures drawn and broad spectrum abx given. 3. Hypomagnesemia: Will replace and recheck daily. 4. Diabetes mellitus: Add pattern blood sugars and sliding scale insulin. 5. Chronic kidney disease, stage 3 to 4: This is overall chronic and stable. Will continue to monitor, lightly hydrate, and avoid any nephrotoxins. 6. Gastroesophageal reflux disease: Continue proton pump inhibitor. 7. Left dorsal diabetic wound, followed by Dr. Israel: Will have him follow up with Dr. Israel outpatient. 8. Deep venous thrombosis prophylaxis with sequential compression devices and TEDs. 9. Further recommendations to follow. Dictated by EDEN Castro for Stanislav Moser MD cc: EDEN Castro MD MTDD
[2016-07-14] MEDS: SODIUM CHLORIDE 0.9% INJ SCH (22:26)
[2016-07-14] MEDS: ZOSYN 2.25 GM/NS 2.25 GM/50 ML IVPB IV SCH (22:26)
[2016-07-14] MEDS: PROTONIX IV SCH (22:26)
[2016-07-14] MEDS: HUMALOG SUBQ SCH (22:47)
[2016-07-15] MEDS: DUONEB (A & A) INH SCH ×6 (03:36→23:13)
[2016-07-15] MEDS: ZOSYN 2.25 GM/NS 2.25 GM/50 ML IVPB IV SCH ×4 (04:16→21:43)
--- NOTE | 2016-07-15 05:51 | EKG Report ---
Test Performed on : 07/14/2016 10:10:59 PM Test Reason : Rhythm Change Blood Pressure : / mmHG Vent. Rate : 092 BPM Atrial Rate : 092 BPM P-R Int : 130 ms QRS Dur : 074 ms QT Int : 360 ms P-R-T Axes : 032 027 026 degrees QTc Int : 445 ms Normal sinus rhythm. Low voltage QRS Nonspecific T wave abnormality Abnormal ECG When compared with ECG of 14-JUL-2016 19:52, (Unconfirmed) No significant change was found Confirmed by Karen LEHMAN, Corona Doyle ([id number]) on 07/15/2016 10:56:51 AM
--- NOTE | 2016-07-15 05:51 | EKG Report ---
Test Performed on : 07/14/2016 7:52:21 PM Test Reason : Repeat EKG due to artifact Blood Pressure : / mmHG Vent. Rate : 097 BPM Atrial Rate : 097 BPM P-R Int : 132 ms QRS Dur : 072 ms QT Int : 358 ms P-R-T Axes : 023 029 023 degrees QTc Int : 454 ms Normal sinus rhythm. Low voltage QRS Nonspecific T wave abnormality Abnormal ECG When compared with ECG of 14-JUL-2016 17:59, (Unconfirmed) No significant change was found Confirmed by Karen LEHMAN, Corona Doyle ([id number]) on 07/15/2016 10:56:44 AM
--- NOTE | 2016-07-15 05:54 | EKG Report ---
Test Performed on : 07/14/2016 5:59:36 PM Test Reason : st elevation with P wave inversion Blood Pressure : / mmHG Vent. Rate : 102 BPM Atrial Rate : 102 BPM P-R Int : 116 ms QRS Dur : 068 ms QT Int : 342 ms P-R-T Axes : 071 079 077 degrees QTc Int : 445 ms Sinus tachycardia. Nonspecific T wave abnormality Abnormal ECG When compared with ECG of 15-JUN-2016 06:14, No significant change was found Confirmed by Karen LEHMAN, Corona Doyle ([id number]) on 07/15/2016 10:56:33 AM
[2016-07-15] MEDS: HUMALOG SUBQ SCH ×4 (06:08→21:44)
[2016-07-15 06:57] LABS: POTASSIUM 4.2 mmol/L (3.5-5.1)
[2016-07-15 08:54] LABS: BASO% 0.1 % (0.0-0.8); HEMOGLOBIN 7.7 g/dL (14.0-18.0); IMM GRAN# 0.48 X1000 (0.0-0.04); IMM GRAN% 1.7 % (0.0-0.5); LYMPH# 1.03 X1000 (1.2-3.4); LYMPH% 3.6 % (20.5-51.1); MANUAL DIFF NEEDED? YES; MCH 26.5 PG (27-31); MCHC 33.5 g/dL (33-37); MONO# 1.47 X1000 (0.11-0.59); MONO% 5.2 % (1.7-9.3); MPV 11.2 FL (7.4-10.4); NEUT% 89.4 % (42.2-75.2); PLT 149 X1000 (130-400); RBC 2.91 XMIL (4.7-6.1)
[2016-07-15 08:56] LABS: BANDS 28 % (0-1); LYMPHS 6 % (21-51)
[2016-07-15] MEDS ORDERED: COREG PO SCH (09:00)
[2016-07-15] MEDS: NICODERM PATCH TD SCH (10:27)
--- NOTE | 2016-07-15 11:05 | PROGRESS NOTE ---
DATE: 07/15/2016 SUBJECTIVE: This patient looks much better today, he is alert and oriented x3, he moves all 4 extremities. He is not complaining of chest pain or shortness of breath. OBJECTIVE: Vital Signs: Temperature 98.4 degrees, pulse 86, respiratory rate 20, blood pressure 133/48, O2 saturation 100% on room air. HEENT: Head normocephalic. No trauma. PERRLA. Neck: Supple. No JVD. No masses. Central trachea. Chest: Clear to auscultation. No wheezing. No rales. Decreased at the bases. Cardiovascular: RRR. No murmurs. Abdomen: Soft, nontender, nondistended. Extremities: No edema. No clubbing. No cyanosis. He has a right lower extremity wound that looks clean with no signs of infection. Neurological: The patient is alert and oriented x 3. No focal deficits. LABORATORY: WBC 28.5, hemoglobin 7.7, hematocrit 23, platelet 149,000. Sodium 138, potassium 4.2, chloride 105, bicarbonate 17, BUN 22, creatinine 2.3, glucose 58, calcium 7. ASSESSMENT AND PLAN: 1. Septic shock. He responded to fluids and antibiotics, the WBC jumped from 2.4-28.5, this patient is on broad-spectrum antibiotics. I will continue with the same management for now. The blood pressure has been a little bit high in the 150s and he has a history of CHF, he has been on blood pressure medications; carvedilol, amlodipine and hydralazine. I will start this patient just on carvedilol but not all of his medications because he came in with hypotension and lactic acidosis. The source of infection- I cannot find a source of infection. I will monitor. We have a positive blood culture that showed gram-negative rods. For now, I will continue with the same antibiotics. 2. Hypomagnesemia. That was replaced. I will check the magnesium again. 3. Syncope likely secondary to hypotension and septic shock. 4. Type 2 diabetes. Continue with the pattern of blood sugar and sliding scale insulin. 5. Chronic kidney disease is stage 3-4, chronic and stable. Continue to monitor. Continue IV fluids. 6. Gastroesophageal reflux disease. Continue with PPIs. 7. Left dorsum diabetic wound follow by Dr. Israel. I will ask for wound care to evaluate this patient. 8. Deep venous thrombosis prophylaxis with SCDs and pads. I mentioned before that I will start this patient on blood pressure medication, but I want a hold on that. Cardiology Department has been consulted. This patient looks much better today. I will wait for the blood culture to give me what kind of bacteria it is and the sensitivity. cc: Stanislav Moser MD
--- NOTE | 2016-07-15 17:01 | ECHO REPORT ---
ORDER DATE: 07/15/2016 ECHOCARDIOGRAPHIC MEASUREMENTS: 1. Interventricular septum 1.5. 2. Left ventricular posterior wall 1.6. 3. Diastolic diameter 3.6. 4. Left atrium 2.8. 5. Aorta 3.4. SUMMARY OF 2-DIMENSIONAL IMAGIN. Normal left ventricular cavity size. Concentric left ventricular hypertrophy. Estimated ejection fraction of 60-65%. 2. Aortic valve leaflets with sclerosed trileaflet. 3. Mitral valve was normal. Tricuspid valve was normal. 4. Technically suboptimal study. Poor apical windows. 5. There is trivial mitral regurgitation. Trace tricuspid regurgitation. Peak velocity across the aortic valve less than 2 m/sec. There is no aortic stenosis or regurgitation. 6. Anterior echo-free space suggestive of small anterior pericardial effusion, more distally noted. There is no evidence of tamponade. cc: MD Fermín Ortega MD
--- NOTE | 2016-07-15 17:12 | CONSULTATION ---
DATE OF CONSULTATION: 07/15/2016 IMPRESSION: 1. Reported episode of loss of consciousness which patient presently does not recall. Patient noted to be hypotensive. 2. Hypertensive cardiovascular disease with fairly recent echocardiography study showing prominent left ventricular hypertrophy and preserved left ventricular systolic function. 3. Chronic kidney disease stage 4. 4. Memory difficulty currently. 5. Gastroesophageal reflux disease. 6. Peptic ulcer disease. 7. Hyperlipidemia. 8. Recent admission for cardiopulmonary arrest in the setting of sepsis. 9. Abdominal aortic aneurysm. 10. Chronic obstructive pulmonary disease. 11. Gout. RECOMMENDATIONS: 1. Agree with discontinuation of antihypertensive medications at this point in light of patient's symptomatic hypotension. 2. Repeat echocardiography. 3. Continue to monitor on telemetry. 4. Consider further evaluation of patient's memory difficulty. HISTORY: This 75-year-old -[place] male with past history of hypertensive cardiovascular disease, chronic kidney disease stage 4, gastroesophageal reflux disease, peptic ulcer disease, hyperlipidemia, COPD and recent hospitalization for sepsis during which he suffered cardiopulmonary arrest. He is not able to give much in the way of history as he is having difficulty with his memory. He is not exactly sure why he is here. Reportedly he was sitting at the breakfast table eating breakfast with his family and had episode of loss of consciousness. He was described as having a blank stare and then becoming minimally responsive and finally diaphoretic. EMS was summoned. He was found to be hypotensive. He recently had been started on lisinopril. This has been discontinued. Recent echocardiography in April of this year reported significant left ventricular hypertrophy and preserved left ventricular systolic function. The left ventricle is described as being hyperdynamic. PAST MEDICAL HISTORY: 1. Hypertensive cardiovascular disease. 2. Chronic kidney disease stage 4. 3. Gastroesophageal reflux. 4. Peptic ulcer disease. 5. Hyperlipidemia. 6. Recent admission for sepsis and associated cardiopulmonary arrest. 7. Abdominal aortic aneurysm. 8. COPD. 9. Gout. PAST SURGICAL HISTORY: Includes abdominal aortic aneurysm repair and right foot debridement. MEDICATIONS: Prior to admission as listed. SOCIAL HISTORY: The patient continues to smoke. He does not use alcohol. FAMILY HISTORY: Negative for premature coronary disease. REVIEW OF SYSTEMS: Pulmonary: Negative. Gastrointestinal: Negative. Constitutional: Negative. Remainder of review of systems negative with 14 total systems reviewed. PHYSICAL EXAMINATION: General: This is a elderly -[place] male in no distress on room air. Vital signs: Blood pressure 108/70, heart rate 94 and regular. Oxygen saturation 100% on room air. HEENT Exam: Extraocular movements intact. Mucous membranes are moist. Neck: Supple without JV distention. There are no carotid bruits. Chest: Clear to auscultation. Cardiac Exam: Was a regular rate and rhythm without appreciable murmur or gallop. Abdomen: Soft, nontender. Bowel sounds are normal. Extremities: Without edema. Neurologic Exam: Reveals him to be alert and responsive. He is oriented to person. He knows he is in the city of [place], [place] but not where in [place]. He believes the date to be 08/03/2013. Speech is fluent. He moves all 4 extremities equally well. DIAGNOSTIC DATA: ECG demonstrates sinus rhythm, low voltage QRS in limb leads and nonspecific T- wave abnormality. cc: Fermín Toledo MD
[2016-07-15] MEDS: PROTONIX IV SCH (21:43)
[2016-07-15] MEDS: SODIUM CHLORIDE 0.9% INJ SCH (21:43)
[2016-07-16] MEDS: DUONEB (A & A) INH SCH ×6 (03:00→23:11)
[2016-07-16] MEDS: ZOSYN 2.25 GM/NS 2.25 GM/50 ML IVPB IV SCH ×2 (04:19→09:51)
[2016-07-16] MEDS: HUMALOG SUBQ SCH ×5 (06:09→20:42)
[2016-07-16 06:27] LABS: CALCIUM 7.8 mg/dL (8.8-10.2); EOS# 0.03 X1000 (0.0-0.7); EOS% 0.1 % (0.0-10.0); HEMATOCRIT 26.2 % (42.0-52.0); HEMOGLOBIN 8.9 g/dL (14.0-18.0); IMM GRAN% 10.3 % (0.0-0.5); LYMPH# 1.66 X1000 (1.2-3.4); LYMPH% 5.9 % (20.5-51.1); MANUAL DIFF NEEDED? YES; MCH 26.4 PG (27-31); MCV 77.7 FL (81-99); MONO# 1.24 X1000 (0.11-0.59); MONO% 4.4 % (1.7-9.3); MPV 11.3 FL (7.4-10.4); NEUT% 79.3 % (42.2-75.2); PLT 140 X1000 (130-400); RBC 3.37 XMIL (4.7-6.1)
[2016-07-16 06:34] LABS: BANDS 22 % (0-1); LYMPHS 6 % (21-51); MONO 6 % (1-9)
--- NOTE | 2016-07-16 09:05 | PROGRESS NOTE ---
DATE: 07/16/2016 SUBJECTIVE: The patient denies chest discomfort or dyspnea. His confusion appears to have improved, and he is fully oriented this morning. OBJECTIVE: Vital Signs: Blood pressure 162/80, heart rate 77 and regular. There is no significant jugular venous distention. Chest is clear to auscultation. Cardiac: Regular rate and rhythm without appreciable murmur or gallop. There is no evidence of edema. Echocardiography reports left ventricular hypertrophy and normal left ventricular systolic function. Laboratory data remarkable for white blood cell count of 28.12, hematocrit 26.2. BUN 26, creatinine 2.2. Troponin T initially 0.029 and follow-up troponin T 0.023. Blood cultures positive for Escherichia coli. IMPRESSION: 1. Possible recent syncope. Clinical presentation more suspicious for recurrent gram-negative sepsis. Data does not support cardiac etiology. 2. Hypertensive cardiovascular disease with left ventricular hypertrophy. 3. Recent admission in the past few months for sepsis with associated cardiopulmonary arrest. 4. Chronic obstructive pulmonary disease. 5. Confusion probably related to sepsis, now improved. RECOMMENDATIONS: 1. Continue medical management for patient's hypertensive cardiovascular disease. 2. Continue to monitor on telemetry. 3. No further cardiology suggestions at this point. We will see further on an as needed basis. cc: Fermín Toledo MD
[2016-07-16] MEDS: NICODERM PATCH TD SCH (09:51)
--- NOTE | 2016-07-16 13:16 | PROGRESS NOTE ---
DATE: 07/16/2016 SUBJECTIVE: Patient reports feeling fine. More alert and oriented. Not complaining of chest pain, difficulty breathing, fever or chills. OBJECTIVE: Vital Signs: Temperature 97.9 degrees, heart rate 79, respiratory rate 18, blood pressure 166/84, O2 saturation 100% on room air. General examination: This is a 75-year-old male, lying in bed, in no acute distress. HEENT: Head is normocephalic, atraumatic. Anicteric sclerae and pale conjunctivae. Mucous membranes moist. Neck: Supple. No JVD noted. No carotid bruits. No lymphadenopathy. No thyromegaly. Cardiovascular: No murmurs, gallops or rubs. Regular rate and rhythm. Respiratory: Clear bilaterally to auscultation. No work of breathing or using accessory muscles. Abdomen: Soft, nontender to palpation. Bowel sounds present. No organomegaly. Extremities: No clubbing, cyanosis, or edema. Peripheral pulses present in both legs. Neurologic: Patient is alert and oriented x3. Able to move 4 extremities. Cranial nerves 2-12 grossly normal. LABORATORY DATA: White cell count 28.812, hemoglobin 8.9, hematocrit 26.2 platelets 140,000. Creatinine is 2.2. ASSESSMENT AND PLAN: 1. Septic shock. We have results from blood cultures that reveals E. coli ESBL infection. White cell count has jumped [place] 2.5 [place] [address] yesterday and today. Patient is not spiking any fever. Considering that this E. coli is a pathogen from the GI tract we are going to check a CT of abdomen and pelvis without contrast because of creatinine function. We are going to change antibiotics from vancomycin and Zosyn to ertapenem 1 g IV q.24 hours and we will consult Dr. Weber from Infectious Disease. 2. Hypomagnesemia resolved. 3. Diabetes type 2. We will continue with sliding scale insulin. 4. Chronic kidney disease stage 3. Creatinine around baseline. 5. Gastroesophageal reflux disease. We will continue with PPIs. 6. Left dorsum diabetic wound. We will continue with Wound Care team. 7. Hypertension. Blood pressure has been not well controlled with blood pressure ranging between 170s and 150s. Currently he is not on any medication. Considering that this patient is just getting the right medications because we have the results of the blood cultures today we prefer to keep this patient on no medications and if blood pressure continues to rise will start most probably on amlodipine 5 mg p.o. daily. cc: González Gruber MD
[2016-07-16] MEDS: INVANZ 1 GM/NS 1 GM/50 ML IVPB IV SCH (14:24)
--- NOTE | 2016-07-16 16:22 | CONSULTATION ---
DATE OF CONSULTATION: 07/16/2016 CONCLUSION: Patient is admitted to the hospital with an altered mental status most likely due to an extended spectrum beta lactamase producing E. coli bacteremia. The exact origin of the bacteremia is uncertain to me at this time. Chest x-ray shows no acute disease so he does not appear to have pneumonia. His urine culture is negative thus seemingly making a urinary tract infection as the source of the bacteremia. Possibly the bacteremia is arising from an intestinal source such as a colon lesion or from the biliary system. RECOMMENDATIONS: I agree with Dr. Gutierrez's decision to place the patient on ertapenem. I have ordered an abdominal ultrasound to see where the bacteremia originated from. DISCUSSION: The patient tells me that he was admitted to the hospital with an altered mental status and now he feels back to normal. He does not complain of any pain. He is not complaining of any nausea or vomiting. The patient does have on his right foot an injury that apparently is occurred a month ago but the foot according to the patient is getting better and I think this would be an unlikely source for the bacteremia. The patient's lab studies thus far [place] [address], hemoglobin 8.9, and platelet count 140,000. Creatinine is 2.2. The GFR is 36. Urinalysis showed no white cells or bacteria. Urine culture is negative. Stool for Clostridium difficile were negative. Echocardiogram showed a small anterior pericardial effusion. Chest x-ray showed no acute disease. Abdominal x-ray likewise showed no abnormalities. Liver function studies were normal except for an elevation of the alkaline phosphatase to 141. The patient's CT scan of the head showed chronic ischemic microvascular disease changes. PAST MEDICAL HISTORY/REVIEW OF SYSTEMS: Eyes and Ears: He denies difficulty hearing or seeing. Neck: No stiffness. Respiratory: No cough or shortness of breath. Cardiac: No chest pains or palpitations. Abdomen: No abdominal pain, nausea or vomiting. Endocrine: Patient does have diabetes but not thyroid disease. Neurologic: The patient did have an altered mental status. That has cleared. His memory appeared to be fairly accurate. He does not complain of any loss of strength. Integument: No rash. The remainder the patient's review of systems was completed and was negative. PREVIOUS HOSPITALIZATIONS AND OPERATIONS: He has had a myocardial infarction. The patient has had an abdominal aortic aneurysm repair and more recently he has had a debridement of the right foot by Dr. Israel. MEDICAL DISEASES: Positive for diabetes mellitus, myocardial infarction, hypertension and possibly stroke. Chronic kidney disease, gastroesophageal reflux disease, peptic ulcer disease, hyperlipidemia, prior history of cardiac arrest and respiratory failure and sepsis, COPD, gout and a history of an abdominal aortic aneurysm which was treated surgically. INFECTIOUS DISEASE HISTORY: Negative for pneumonia and UTI. FAMILY HISTORY: Positive for hypertension, cancer and myocardial infarction. SOCIAL HISTORY: [place] the city. He smokes cigarettes. He does not drink alcoholic beverages and does not abuse drugs. He has a dog as a pet. PHYSICAL EXAMINATION: Vital Signs: Temperature is 97.9 degrees, pulse 79, respirations 18, blood pressure 166/84. General: This is an ill-appearing, elderly male. He appears to be to be chronically ill. Head, eyes, ears, nose, and throat: He can hear my spoken words and see near objects. No drainage noted from the nose or ears. Patient is wearing dentures. Neck: No meningismus. Thorax: There was slight increased AP diameter of the chest. Lungs: Clear to auscultation. Cardiovascular: Regular heart rate. Abdomen: Soft and nontender. Neurologic: Patient is awake. He can move his extremities. There is no tremor. His sensation at first told me was absent but then he said he could feel light touch to his arms and legs. Patient's memory as regarding his medical history was decreased. Extremities: The patient's right foot has an ulcerated area. He is being followed in the [facility] by Dr. Israel. Thank you for the consult. cc: Edwin Weber MD
[2016-07-16] MEDS ORDERED: VANCOMYCIN 1,100 MG in NS 250 ML IV SCH (21:00)
[2016-07-16] MEDS: PROTONIX IV SCH (22:14)
[2016-07-16] MEDS: SODIUM CHLORIDE 0.9% INJ SCH (22:14)
[2016-07-17] MEDS: DUONEB (A & A) INH SCH ×6 (03:32→23:15)
[2016-07-17] MEDS: HUMALOG SUBQ SCH ×4 (06:16→22:25)
[2016-07-17 06:23] LABS: BASO% 0.1 % (0.0-0.8); EOS# 0.04 X1000 (0.0-0.7); EOS% 0.2 % (0.0-10.0); HEMATOCRIT 24.3 % (42.0-52.0); HEMOGLOBIN 8.3 g/dL (14.0-18.0); IMM GRAN# 0.03 X1000 (0.0-0.04); IMM GRAN% 0.2 % (0.0-0.5); LYMPH# 1.52 X1000 (1.2-3.4); LYMPH% 8.5 % (20.5-51.1); MANUAL DIFF NEEDED? YES; MCH 26.6 PG (27-31); MCHC 34.2 g/dL (33-37); MCV 77.9 FL (81-99); MONO# 0.71 X1000 (0.11-0.59); MPV 11.8 FL (7.4-10.4); PLT 130 X1000 (130-400); RBC 3.12 XMIL (4.7-6.1)
[2016-07-17 06:30] LABS: BANDS 2 % (0-1); LYMPHS 10 % (21-51); MONO 6 % (1-9)
[2016-07-17 06:42] LABS: CALCIUM 7.9 mg/dL (8.8-10.2); POTASSIUM 3.7 mmol/L (3.5-5.1)
--- NOTE | 2016-07-17 08:52 | PROGRESS NOTE ---
DATE: 07/17/2017 PRESENT ILLNESS: The patient has an extended spectrum beta lactamase producing Escherichia coli bacteremia. The origin of the bacteremia is uncertain to me at this time. MEDICATIONS: The patient is receiving ertapenem. PHYSICAL EXAMINATION: Vital Signs: Temperature is 97.9 degrees, pulse 91, respirations 16, blood pressure 165/91. Generally, this is a somewhat ill-appearing, elderly male. He is in no acute distress. Lungs clear to auscultation. Cardiovascular: Heart rate is regular. Abdomen is soft and nontender. LABORATORY DATA AND X-RAY: The CBC for today shows a white count of 17,960. Hemoglobin 8.3 and platelet count 130,000. Creatinine is 2. The GFR is 40. There is no new radiographic study for today. ASSESSMENT AND PLAN: The plan is to continue the ertapenem for the patient's bacteremia. I have ordered an abdominal ultrasound to see if there is a biliary source for the patient's Escherichia coli bacteremia. Also for tomorrow, I have ordered 2 repeat blood cultures to see if the patient's bacteremia is clearing. If the ultrasound does not show any pathology , then I think the patient would be a candidate for a colonoscopy to see if there is any lesion in the colon that could have been the source of the patient's Escherichia coli bacteremia. Because the patient had an aortic aneurysm that was treated surgically, he may well have a graft in place and, unfortunately, that graft could have become infected while the patient was bacteremic; therefore, I will need to treat the patient for a total of 6 weeks with ertapenem and, hopefully, this will eradicate any infection on the graft if there is one. Ideally, I would like to follow that with a prolonged oral antibiotic but, unfortunately, there is not a good oral antibiotic to use to treat the infection on a long-term basis. The patient's comorbidities include diabetes mellitus and history of an aortic aneurysm which was treated surgically. cc: Edwin Weber MD [id number]
--- NOTE | 2016-07-17 09:24 | Diag Imaging Result Doc PS360 ---
EXAM: US ABDOMEN-COMPLETE INDICATION: bacteremia COMPARISON: Renal ultrasound dated 10/14/2015 FINDINGS: The gallbladder appears normal with no stones, wall thickening, or pericholecystic fluid. The common bile duct is normal in diameter. Sonographic Bae's sign was reported to be negative. The liver is grossly unremarkable. There is a small distal abdominal aortic aneurysm measuring up to 3.2 cm in the greatest diameter. The IVC is unremarkable. The partially visualized pancreas and spleen are grossly unremarkable. The kidneys are partially obscured but appear somewhat echogenic, which is a nonspecific indicator of medical renal disease. IMPRESSION: 1.Small distal abdominal aortic aneurysm. 2.Increased renal echotexture, which is a nonspecific indicator of medical renal disease. Electronically signed by Catrachito Jones 07/17/2016 9:22 AM
[2016-07-17] MEDS: NICODERM PATCH TD SCH (09:52)
--- NOTE | 2016-07-17 11:15 | Diag Imaging Result Doc PS360 ---
EXAM: ABDOMEN/PELVIS W/O CONTRAST HISTORY: e coli bacteremia TECHNIQUE: CT urogram without contrast with dose reduction (clarity.) COMMENT: There is atelectasis in both posterior costophrenic sulci. There are small bilateral pleural effusions which were not present on 06/13/2012. There is no evidence of nephrolithiasis. There is mild fullness of the collecting system in both kidneys. There are no apparent gallstones. The adrenal glands and spleen are not enlarged. There are calcifications throughout the pancreas particularly in the head of the pancreas. This has increased markedly since the previous study. Atrophy and ductal dilatation were present previously. There still a fairly large calcification near the distal common bile duct and pancreatic duct. Several duodenal diverticula are present which were also present previously. There is an infrarenal abdominal aortic aneurysm with a maximum AP dimension of 3.6 cm. This is somewhat different in configuration to the previous study at which time the AP diameter was 3.9 cm but the aneurysmal portion appears much narrower in transverse dimension and measuring 3.4 cm on the current study compared to over 4.5 cm previously. This may be secondary to interval endograft placement. Much less dilatation of the proximal right internal iliac artery compared to the previous study. This only measures 2 cm on the current study. The appendix is not distended and contains gas. There is a large amount of stool present in the distal colon. With fecal impaction in the rectum. There is a White catheter in the bladder. The bladder is not distended and contains gas. No evidence of small bowel obstruction is present. IMPRESSION: Constipation with fecal impaction. Evidence of chronic pancreatitis. 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 Bilateral pleural effusions and basilar atelectasis. Mild anasarca. Electronically signed by Hardik Grullon 07/17/2016 11:13 AM
--- NOTE | 2016-07-17 11:59 | PROGRESS NOTE ---
DATE: 07/17/2016 SUBJECTIVE: Patient reports feeling fine. No chills, no fever. No urinary complaints. No chest pain. OBJECTIVE: Vital Signs: Temperature 97.9 degrees, heart rate 91, respiratory rate 16, blood pressure 165/91, O2 saturation 100% on room air. General Examination: This is a 75-year-old, male, lying in bed, in no acute distress. HEENT: Head is normocephalic and atraumatic. Anicteric sclerae and pale conjunctivae. Mucous membranes moist. Neck: Supple. No JVD noted. No carotid bruits. No lymphadenopathy. No thyromegaly. Cardiovascular Examination: S1 and S2 heard. No murmurs, gallops, or rubs. Regular rate and rhythm. Respiratory Examination: Clear bilaterally to auscultation. No work of breathing or using accessory muscles. Abdomen: Soft, nontender to palpation. Bowel sounds present. No organomegaly. Extremities: No clubbing, cyanosis, or edema. Peripheral pulses present in both legs. Neurological Examination: Patient is alert and oriented x3. Able to move 4 extremities. Cranial nerves 2-12 are grossly normal. Laboratory Data: White cell count 17.96, hemoglobin 8.3, hematocrit 24.3, platelets 130,000. Creatinine 2. ASSESSMENT AND PLAN: 1. Sepsis secondary to Escherichia coli extended-spectrum B-lactamase. White cell count has jumped 3 days ago from 3000-25,000. We found out that the blood culture shows Escherichia coli extended-spectrum B-lactamase so we have switched medications to ertapenem 1 gm intravenous every 24 hours. White cell count started going down to 17,[address] Weber has been consulted and he thinks that this patient may have this infection coming from the gastrointestinal tract. Abdominal ultrasound did not confirm any signs of infection in the gallbladder. CT of the abdomen showed severe constipation. At this time, we are going to continue with the same antibiotics. 2. Hypomagnesemia, resolved. 3. Diabetes type 2. We will continue with sliding scale insulin. 4. Chronic kidney disease stage III. Creatinine is around baseline. 5. Gastroesophageal reflux disease. Patient is on Protonix. 6. Left dorsum diabetic wound. Wound care on board. 7. Hypertension. Blood pressure has been in the range of 165-150s so at this point, we will add amlodipine to his current treatment. Overall, this patient is doing good clinically. White cell count is getting better and the patient is not developing any fever. We will wait 48 hours from the beginning of ertapenem to check another blood culture and if that is negative, we can place a PICC line and he will receive 6 weeks of antibiotics. cc: González Gruber MD
[2016-07-17] MEDS: DULCOLAX PO SCH (13:37)
[2016-07-17] MEDS: MIRALAX PO SCH ×2 (13:38→22:28)
[2016-07-17] MEDS: INVANZ 1 GM/NS 1 GM/50 ML IVPB IV SCH (13:39)
[2016-07-17] MEDS: PROTONIX IV SCH (22:28)
[2016-07-18] MEDS: DUONEB (A & A) INH SCH ×5 (03:30→23:30)
[2016-07-18] MEDS: HUMALOG SUBQ SCH ×4 (06:46→23:46)
[2016-07-18 07:10] LABS: MANUAL DIFF NEEDED? NO
[2016-07-18 07:20] LABS: EOS# 0.06 X1000 (0.0-0.7); EOS% 0.8 % (0.0-10.0); HEMOGLOBIN 7.4 g/dL (14.0-18.0); IMM GRAN# 0.02 X1000 (0.0-0.04); IMM GRAN% 0.3 % (0.0-0.5); LYMPH# 1.34 X1000 (1.2-3.4); LYMPH% 17.3 % (20.5-51.1); MCH 26.3 PG (27-31); MCHC 33.6 g/dL (33-37); MCV 78.3 FL (81-99); MONO# 0.63 X1000 (0.11-0.59); MONO% 8.1 % (1.7-9.3); MPV 12.1 FL (7.4-10.4); NEUT% 73.5 % (42.2-75.2); PLT 111 X1000 (130-400); RBC 2.81 XMIL (4.7-6.1)
[2016-07-18] MEDS: NICODERM PATCH TD SCH (08:31)
[2016-07-18] MEDS: DULCOLAX PO SCH (08:31)
[2016-07-18] MEDS: MIRALAX PO SCH ×3 (08:31→23:46)
[2016-07-18] MEDS: INVANZ 1 GM/NS 1 GM/50 ML IVPB IV SCH (14:01)
--- NOTE | 2016-07-18 14:40 | PROGRESS NOTE ---
DATE: 07/18/2016 SUBJECTIVE: Patient reports feeling fine. No fever or chills. OBJECTIVE: Vital Signs: Temperature 98.7 degrees, heart rate 95, respiratory rate 18, blood pressure 179/95, O2 saturation 100% on room air. General Examination: This is a 75-year-old male, lying in bed, in no acute distress. HEENT: Head is normocephalic, atraumatic. Neck: Supple. No JVD noted. No carotid bruits. Cardiovascular: S1, S2 heard. No murmurs, gallops, or rubs. Regular rate and rhythm. Respiratory: Clear bilaterally to auscultation. No work of breathing or using accessory muscles. Abdomen: Soft, nontender to palpation. Bowel sounds present. No organomegaly. Extremities: No clubbing, cyanosis, or edema. Peripheral pulses present in both legs. Neurological: Patient is alert and oriented x3. Able to move 4 extremities. Cranial nerves 2-12 grossly normal. LABORATORY DATA: White cell count on is 7.74, hemoglobin 7.4, hematocrit 22.0, platelets 111,000. No BMP from today. ASSESSMENT AND PLAN: 1. Sepsis secondary to E. coli ESBL bacteremia. White cell count has returned back to normal today. Patient has been started on ertapenem 1 g IV q.[address] Weber has been consulted regarding this problem. CT of the abdomen just shows constipation and on ultrasound did not show any signs of cholecystitis. At this point, we have ordered another set of blood cultures. Port has been placed today. The patient will continue with the antibiotics for as we mentioned, for 6 weeks. 2. Hypomagnesemia. Resolved. 3. Diabetes mellitus type 2. We will continue with the sliding scale insulin. 4. Chronic kidney disease, stage 3. Creatinine is at baseline. 5. Gastroesophageal reflux disease. Patient is on Protonix. 6. Hypertension. Blood pressure is still high so will start amlodipine 5 mg p.o. b.i.d. Overall this patient is doing good and physical therapy has been consulted. Patient has a physical deconditioning so we are looking for a bed in [facility]. As soon as we get a bed available, we will discharge him. cc: González Gruber MD
--- NOTE | 2016-07-18 16:51 | PROGRESS NOTE ---
DATE: 07/18/2016 PRESENT ILLNESS: The patient has an extended spectrum beta lactamase producing E. coli bacteremia. He does have on CAT scan, pancreatitis but I think this would be unlikely to be the origin of the bacteremia. MEDICATIONS: The patient has been on ertapenem. PHYSICAL EXAMINATION: Vital Signs: Temperature is 98.7 degrees, pulse 95, respirations 18, blood pressure 179/95. Patient weighs 121 pounds. General: This is a chronically ill-appearing, elderly male. He is somewhat lethargic tonight. Cardiovascular: Heart rate is regular. Lungs: Clear to auscultation. Abdomen: Soft and nontender. LAB AND X-RAY STUDIES: CT shows constipation, pancreatitis and aortic aneurysm and there also is an endograft present. ASSESSMENT AND PLAN: I am going to continue ertapenem for a total of 6 weeks starting with the first negative blood culture in case his aneurysm got infected during bacteremia. Repeat blood cultures were drawn today but the result is still pending. Because we are not certain as to the origin of the bacteremia I have consulted Dr. Bazzi to consider doing a colonoscopy to determine if there is a focus where the patient could have become bacteremic. COMORBIDITIES: Include diabetes mellitus and history of an aortic aneurysm which was treated surgically. cc: Edwin Weber MD MTDD
[2016-07-18] MEDS: NORVASC PO SCH ×3 (17:20→23:46)
[2016-07-18] MEDS: PROTONIX IV SCH ×2 (19:53→23:47)
[2016-07-18] MEDS: SODIUM CHLORIDE 0.9% INJ SCH (19:53)
[2016-07-19] MEDS: DUONEB (A & A) INH SCH ×6 (02:30→19:10)
[2016-07-19] MEDS: HUMALOG SUBQ SCH ×4 (06:02→22:45)
[2016-07-19 06:28] LABS: MANUAL DIFF NEEDED? NO
[2016-07-19 06:35] LABS: EOS# 0.04 X1000 (0.0-0.7); EOS% 0.9 % (0.0-10.0); HEMATOCRIT 22.2 % (42.0-52.0); HEMOGLOBIN 7.3 g/dL (14.0-18.0); IMM GRAN# 0.02 X1000 (0.0-0.04); IMM GRAN% 0.4 % (0.0-0.5); LYMPH# 1.54 X1000 (1.2-3.4); MCH 26.1 PG (27-31); MCHC 32.9 g/dL (33-37); MCV 79.3 FL (81-99); MONO# 0.61 X1000 (0.11-0.59); MONO% 13.5 % (1.7-9.3); MPV 11.4 FL (7.4-10.4); NEUT% 51.2 % (42.2-75.2); PLT 111 X1000 (130-400)
--- NOTE | 2016-07-19 07:22 | PROGRESS NOTE ---
DATE: 07/19/2016 PRESENT ILLNESS: The patient has an extended spectrum beta lactamase producing E coli bacteremia. He does have pancreatitis which theoretically could be the cause of his bacteremia but he does not seem very sick from pancreatitis, and I would doubt that it is the source of his bacteremia. I do think GI focus could be the origin of the bacteremia. MEDICATIONS: The patient is on ertapenem. I start counting the patient's days of treatment when the 1st repeat blood culture comes in sterile. He did have blood cultures yesterday but the results are not yet back. PHYSICAL EXAMINATION: Vital Signs: Temperature is 98.2 degrees, pulse 90, respirations 16, blood pressure 158/85. General: This is a chronically ill-appearing elderly male. He is somewhat lethargic today. Lungs: Clear to auscultation. Cardiovascular: Regular heart rate. Abdomen: Soft and nontender. Neurologic: The patient is arousable. He moved his extremities to request. LAB AND X-RAY: The CBC for today shows a white count of 4530, hemoglobin 7.3 and platelet count 111,000. Repeat blood cultures have been drawn but the results are pending. The number of days the patient will need to be on will be determined the first day of when the blood cultures become negative. Blood cultures were drawn yesterday but the results are pending. ASSESSMENT AND PLAN: The patient has a pancreatitis, he does have E. coli bacteremia. I have put in a consult yesterday for Dr. Bazzi to see the patient and consider doing a colonoscopy to rule out a colonic origin from the patient's E. Coli bacteremia. In the meanwhile, I plan to continue treatment with ertapenem as a single agent. The patient will be treated for 6 weeks with ertapenem in case the aneurysm became infected hematogenously. COMORBIDITIES: Include diabetes mellitus, and history of an abdominal aortic aneurysm surgically repaired. cc: MD KELVIN Arredondo
[2016-07-19] MEDS: MIRALAX PO SCH ×2 (09:29→20:47)
[2016-07-19] MEDS: NORVASC PO SCH ×2 (09:29→20:47)
[2016-07-19] MEDS: DULCOLAX PO SCH (09:29)
[2016-07-19] MEDS: NICODERM PATCH TD SCH (09:30)
[2016-07-19] MEDS: INVANZ 1 GM/NS 1 GM/50 ML IVPB IV SCH (14:00)
--- NOTE | 2016-07-19 14:34 | PROGRESS NOTE ---
DATE: 07/19/2016 SUBJECTIVE: The patient is feeling fine. Not too talkative today. Denies fever or chills. OBJECTIVE: Vital Signs: Temperature 98.1 degrees, heart rate 82, respiratory rate 16, blood pressure 150/81. O2 saturation 100% on room air. General: This is a 75-year-old male, lying in bed, in no acute distress. HEENT: Head is normocephalic, atraumatic. Anicteric sclerae and pale conjunctivae. Mucous membranes moist. Neck supple. No JVD noted. No carotid bruits. No lymphadenopathy. No thyromegaly. Cardiovascular: S1, S2 heard. No murmurs, gallops, or rubs. Regular rate and rhythm. Respiratory: Clear bilaterally to auscultation. No work of breathing or using accessory muscles. Abdomen is soft, nontender to palpation. Bowel sounds present. No organomegaly. Extremities: No clubbing, cyanosis, or edema. Peripheral pulses present in both legs. Neurological: Patient alert and oriented x3. Able to move 4 extremities. Cranial nerves 2- 12 grossly normal. LABORATORY DATA: The white cell count is 4.53, hemoglobin 7.3, hematocrit 22.2, platelets 111,000. BP not available. ASSESSMENT AND PLAN: 1. Sepsis secondary to Escherichia coli extended spectrum beta-lactamase bacteremia. 2. Chronic pancreatitis. 3. Diabetes mellitus, type 2. 4. Chronic kidney disease, stage 3. 5. Gastroesophageal reflux disease 6. Hypertension. PLAN: The patient is in the hospital because of this Escherichia coli extended spectrum beta-lactamase infection bacteremia. is planning to provide antibiotics for 6 weeks total but, because we do not know the source of this Escherichia coli, he put in a consult for GI for possible colonoscopy. We will see what Dr. Shah has to say. In the meantime, we are going to continue with the same doses of ertapenem. For diabetes, we will continue with sliding scale insulin. Regarding chronic kidney disease, stage 3, creatinine is at baseline. For gastroesophageal reflux disease as well, the patient is on Protonix. For hypertension, we have started yesterday amlodipine and blood pressure is much better controlled. cc: González Gruber MD
[2016-07-19] MEDS: PROTONIX IV SCH (20:47)
[2016-07-19] MEDS: SODIUM CHLORIDE 0.9% INJ SCH (20:47)
[2016-07-20] MEDS: DUONEB (A & A) INH SCH ×6 (03:40→23:19)
[2016-07-20 05:33] LABS: MANUAL DIFF NEEDED? NO
[2016-07-20] MEDS: HUMALOG SUBQ SCH ×5 (06:35→21:25)
[2016-07-20 06:48] LABS: BASO% 0.2 % (0.0-0.8); EOS# 0.08 X1000 (0.0-0.7); EOS% 1.4 % (0.0-10.0); HEMOGLOBIN 7.5 g/dL (14.0-18.0); IMM GRAN# 0.03 X1000 (0.0-0.04); IMM GRAN% 0.5 % (0.0-0.5); LYMPH# 1.53 X1000 (1.2-3.4); LYMPH% 26.3 % (20.5-51.1); MCHC 32.6 g/dL (33-37); MCV 79.9 FL (81-99); MONO# 0.84 X1000 (0.11-0.59); MONO% 14.5 % (1.7-9.3); MPV 11.1 FL (7.4-10.4); NEUT% 57.1 % (42.2-75.2); PLT 143 X1000 (130-400); RBC 2.88 XMIL (4.7-6.1)
[2016-07-20] MEDS: MIRALAX PO SCH ×2 (09:59→21:22)
[2016-07-20] MEDS: DULCOLAX PO SCH (09:59)
[2016-07-20] MEDS: NICODERM PATCH TD SCH (09:59)
[2016-07-20] MEDS: NORVASC PO SCH ×2 (09:59→21:21)
--- NOTE | 2016-07-20 11:55 | PROGRESS NOTE ---
DATE: 07/20/2016 SUBJECTIVE: Patient is feeling fine. No complaints today. OBJECTIVE: Vital Signs: Temperature 97.8 degrees, heart rate 92, respiratory rate 20, blood pressure 156/78, O2 saturation 100% on room air. General examination: This is a 75-year-old, male, lying in bed in no acute distress. HEENT: Head is normocephalic, atraumatic. Anicteric sclerae and pale conjunctivae. Mucous membranes moist. Neck: Supple. No JVD noted. No carotid bruits. No lymphadenopathy. No thyromegaly. Cardiovascular exam: S1, S2 heard. No murmur, gallops or rubs. Regular rate and rhythm. Respiratory exam: Clear bilaterally to auscultation. No work of breathing or using accessory muscles. Abdomen: Soft, nontender to palpation. Bowel sounds present. No organomegaly. Extremities: No clubbing, cyanosis, or edema. Peripheral pulses present in both legs. Neurological exam: Patient alert and oriented x3. Able to move 4 extremities. Cranial nerves 2-12 grossly normal. LABORATORY DATA: Reviewed. ASSESSMENT: 1. Sepsis secondary to Escherichia coli extended spectrum beta lactamase bacteremia. 2. Chronic pancreatitis. 3. Diabetes mellitus type 2. 4. Chronic kidney disease stage III. 5. Gastroesophageal reflux disease. 6. Hypertension. PLAN: The patient is in the hospital for this Escherichia coli extended spectrum beta lactamase bacteremia. Dr. Weber plans to provide the bed for 6 weeks, but in order to find out the source of this infection we have consulted GI, but unfortunately patient has not been seen yet. Dr. Bazzi was consulted, but he deferred the consult for Dr. Carcamo; I do not know if she is nylon hot wire cutter today. We will check on her today. At this point, we will continue with the same doses of medications. Also for physical deconditioning we are waiting for a bed in a rehab facility. Hopefully, he can be discharged after the colonoscopy that we are planning to do. For the rest of medical conditions, those are stable and we are going to continue with the same medications. cc: González Gruber MD
[2016-07-20] MEDS: INVANZ 1 GM/NS 1 GM/50 ML IVPB IV SCH (13:52)
[2016-07-20] MEDS: SODIUM CHLORIDE 0.9% INJ SCH (21:21)
[2016-07-20] MEDS: PROTONIX IV SCH (21:21)
[2016-07-21] MEDS ORDERED: D50W SYRINGE ONE (00:54)
[2016-07-21] MEDS: DUONEB (A & A) INH SCH ×6 (03:06→23:07)
[2016-07-21 06:00] LABS: MANUAL DIFF NEEDED? NO
[2016-07-21 06:13] LABS: BASO% 0.3 % (0.0-0.8); EOS# 0.09 X1000 (0.0-0.7); EOS% 0.9 % (0.0-10.0); HEMATOCRIT 23.2 % (42.0-52.0); HEMOGLOBIN 7.7 g/dL (14.0-18.0); IMM GRAN# 0.09 X1000 (0.0-0.04); IMM GRAN% 0.9 % (0.0-0.5); LYMPH# 1.73 X1000 (1.2-3.4); LYMPH% 16.8 % (20.5-51.1); MCH 26.5 PG (27-31); MCHC 33.2 g/dL (33-37); MCV 79.7 FL (81-99); MONO# 0.83 X1000 (0.11-0.59); MONO% 8.1 % (1.7-9.3); MPV 11.2 FL (7.4-10.4); PLT 188 X1000 (130-400); RBC 2.91 XMIL (4.7-6.1)
[2016-07-21] MEDS: HUMALOG SUBQ SCH ×4 (06:45→20:20)
[2016-07-21 08:29] LABS: CALCIUM 8.1 mg/dL (8.8-10.2); POTASSIUM 5.4 mmol/L (3.5-5.1)
[2016-07-21] MEDS: MIRALAX PO SCH ×2 (09:45→20:19)
[2016-07-21] MEDS: DULCOLAX PO SCH (09:45)
[2016-07-21] MEDS: NICODERM PATCH TD SCH (09:45)
[2016-07-21] MEDS: NORVASC PO SCH ×2 (09:45→20:20)
--- NOTE | 2016-07-21 12:00 | PROGRESS NOTE ---
DATE: 07/21/2016 SUBJECTIVE: No complaints today. OBJECTIVE: Vital Signs: Temperature 98 degrees, heart rate 87, respiratory rate 20, blood pressure 151/71, O2 saturation 99% on room air. General Examination: This is a 75-year-old, male, lying in bed, in no acute distress. HEENT: Head is normocephalic and atraumatic. Anicteric sclerae and pale conjunctivae. Mucous membranes moist. Neck: Supple. No JVD noted. No carotid bruits. No lymphadenopathy. No thyromegaly. Cardiovascular Examination: S1 and S2 heard. No murmurs, gallops, or rubs. Regular rate and rhythm. Respiratory Examination: Clear bilaterally to auscultation. No work of breathing or using accessory muscles. Abdomen: Soft, nontender to palpation. Bowel sounds present. No organomegaly. Extremities: No clubbing, cyanosis, or edema. Peripheral pulses present in both legs. Neurological Examination: Patient is alert and oriented x3. Patient is awake and moves 4 extremities. Laboratory Data: Reviewed. ASSESSMENT AND PLAN: 1. Sepsis secondary to Escherichia coli extended-spectrum B-lactamase bacteremia. 2. Chronic pancreatitis. 3. Diabetes type 2. 4. Chronic kidney disease stage III. 5. Gastroesophageal reflux disease. 6. Hypertension. PLAN: The patient is in the hospital for E. coli ESBL infection bacteremia. Dr. Weber plans to provide antibiotics for 6 weeks total but in order to look for a source of infection, GI has been consulted. Dr. Cooper has seen this patient. I am not quite sure if he is planning to do a colonoscopy which was the recommendation from Dr. Weber. At this point, we are going to continue with the same antibiotic management. We are waiting for a bed for this patient in a rehab facility. We will try to figure out what is the next step. We will see if this patient is going to get a colonoscopy. If not, we will see if Dr. Weber is okay to let this patient go. For the rest of the medical conditions, patient is stable and will continue home medications. cc: González Gruber MD
[2016-07-21] MEDS: INVANZ 1 GM/NS 1 GM/50 ML IVPB IV SCH (14:57)
[2016-07-21] MEDS: PROTONIX IV SCH (20:20)
[2016-07-21] MEDS: SODIUM CHLORIDE 0.9% INJ SCH (20:20)
[2016-07-22] MEDS: DUONEB (A & A) INH SCH ×6 (03:17→23:00)
[2016-07-22 05:51] LABS: MANUAL DIFF NEEDED? NO
[2016-07-22] MEDS: HUMALOG SUBQ SCH ×4 (06:07→21:48)
[2016-07-22 06:39] LABS: BASO% 0.1 % (0.0-0.8); EOS# 0.08 X1000 (0.0-0.7); EOS% 1.1 % (0.0-10.0); HEMATOCRIT 20.9 % (42.0-52.0); HEMOGLOBIN 6.8 g/dL (14.0-18.0); LYMPH# 1.95 X1000 (1.2-3.4); LYMPH% 27.6 % (20.5-51.1); MCH 26.2 PG (27-31); MCHC 32.5 g/dL (33-37); MCV 80.4 FL (81-99); MONO% 7.1 % (1.7-9.3); MPV 10.4 FL (7.4-10.4); NEUT% 64.1 % (42.2-75.2); PLT 220 X1000 (130-400)
[2016-07-22] MEDS: MIRALAX PO SCH ×2 (09:26→20:09)
[2016-07-22] MEDS: NORVASC PO SCH ×2 (09:27→20:08)
[2016-07-22] MEDS: NICODERM PATCH TD SCH (09:27)
[2016-07-22] MEDS: DULCOLAX PO SCH (09:27)
--- NOTE | 2016-07-22 12:18 | PROGRESS NOTE ---
DATE: 07/22/2016 PRESENT ILLNESS: The patient has an extended spectrum beta lactamase producing Escherichia coli bacteremia, the exact origin of which is uncertain to me. MEDICATIONS: The patient is on ertapenem. This is day 4 of ertapenem starting from when the patient's blood cultures became negative. PHYSICAL EXAMINATION: Vital Signs: Temperature is 98.2 degrees, pulse 82, respirations 18, blood pressure 148/83. Generally, this is a chronically ill-appearing, elderly male. He is in no acute distress. He is lethargic. Lungs clear to auscultation. Cardiovascular: Regular heart rate. Abdomen is soft and nontender. Neurologic: The patient is arousable. He can move his extremities. There is no tremor. Extremities: The patient on the dorsum of his right foot has a wound which appears to be healing well. It is getting smaller in size and it has got beefy red tissue. LABORATORY DATA AND X-RAY: The patient's CBC today shows a white count of 7060, hemoglobin 6.8 and platelet count 220,000. Creatinine is 1.6. GFR is 51. Repeat blood cultures are negative. ASSESSMENT AND PLAN: I plan to continue ertapenem for the patient's Escherichia coli bacteremia because he has an aortic aneurysm which may have become hematogenously infected. Tomorrow, he is scheduled for a colonoscopy. As mentioned above, this is day 4 of treatment, and the patient will require a 6-week treatment course, therefore, he has 38 more days of treatment left. Also, the patient has an endo graft in place and, theoretically, this also could become infected when the patient was bacteremic. The patient's comorbidities include diabetes mellitus, abdominal aortic aneurysm, and endo graft. cc: Edwin Weber MD
--- NOTE | 2016-07-22 12:41 | CONSULTATION ---
DATE OF CONSULTATION: 07/19/2016 REASON FOR CONSULTATION: I was asked to consult for 2 reasons, one is doing a colonoscopy to rule out the source of his Escherichia coli bacteremia as per the suggestion of Dr. Edwin Weber, and number 2, there is some questionable abnormality in the rectum. HISTORY OF PRESENT ILLNESS: The patient actually came in a few days ago, a patient of Dr. Keller, with septicemia. He has been treated, and my role is currently to see where the sepsis is from. PAST MEDICAL AND SURGICAL HISTORY: He had an abdominal aortic aneurysm repair, debridement of the right foot, diabetes mellitus, myocardial infarction, hypertension, stroke, chronic kidney disease, gastroesophageal reflux disease, peptic ulcer, respiratory failure, sepsis, COPD, gout. REVIEW OF SYSTEMS: The review of systems was obtained. The patient generally denies any symptoms. He is eating fairly normally. His is at bedside. He is looking better. He is getting his antibiotics. PHYSICAL EXAMINATION: Vital Signs: Temperature of 97.9 degrees, pulse 79, respirations 18, blood pressure 160/80. HEENT: Conjunctivae pallor present. No scleral icterus. Neck: Supple. Trachea midline. Heart: Normal first and second heart sounds. Lungs: Clear, though generalized decreased breath sounds. Abdomen: Scaphoid, soft, nontender. Bowel sounds present and normal. Neurological: No focal deficit. Extremities: The patient has an ulcer of the right foot. I am not sure what it showed. IMPRESSION: 1. Escherichia coli septicemia, source yet unknown. 2. Debridement of foot ulcer recently. I do not have the cultures of that. 3. Rule out any colitis or colon cancer, although unlikely. 4. Diabetes mellitus. 5. Chronic renal disease. 6. Peptic ulcer disease. 7. Chronic obstructive pulmonary disease. 8. Gout. PLAN: While all his renal failure and chronic conditions are dealt with and infectious disease is dealt with by Dr. Edwin Weber, I will proceed with colonoscopy possibly on Friday unless there is any change in his clinical status. cc: Nena Cooper MD
--- NOTE | 2016-07-22 12:54 | PROGRESS NOTE ---
DATE: 07/20/2016 SUBJECTIVE: Feeling fine. No complaints. Tolerating diet. OBJECTIVE: Vital Signs: Temperature 97.8 degrees, heart rate 92, respirations 20, blood pressure 150/78, O2 saturation 100%. HEENT: Conjunctival pallor present. Neck: Neck is supple. Trachea in the midline. Heart: Normal. Lungs: Normal. Abdomen: Benign. Extremities: Evidence of a foot ulcer recently debrided. Laboratory Data: No changes. IMPRESSION: 1. Sepsis secondary to E. Coli of unknown source. 2. History of pancreatitis. 3. Diabetes mellitus. 4. Chronic kidney disease stage III. 5. Hypertension. PLAN: We will plan on doing a colonoscopy. I think Dr. González Gruber did not my note but we are planning to do a colonoscopy to rule out any colon source, although it is unlikely. We will follow him again. cc: Nena Cooper MD
--- NOTE | 2016-07-22 12:55 | PROGRESS NOTE ---
DATE: 07/22/2016 CHIEF COMPLAINT: No complaint. Tolerating the diet. I am changing it to clear liquids today. OBJECTIVE: Vital Signs: Temperature 98 degrees, heart rate 87, respirations 20, blood pressure 150/70, O2 saturation 99%. General: A 75-year-old gentleman. Looks better than 2 days ago. He is eating better. HEENT: No scleral icterus. Mild conjunctival pallor. Neck: Supple. Trachea in the midline. Heart: Normal. Lungs: Normal. Abdomen: Benign. No tenderness. Bowel sounds present and normal. Lab Data: No change. IMPRESSION: 1. Sepsis secondary to E. coli of unknown etiology. 2. Chronic pancreatitis. 3. Diabetes type 2. 4. Chronic kidney disease stage III. 5. Gastroesophageal reflux disease. 6. History of ulcer disease. PLAN: We will start giving him Colyte at 4 o'clock. We will plan on doing a colonoscopy to rule out any neoplasm or colitis for the E. coli sepsis, although it is unlikely to be the source but possible. -7 cc: MD Nena Salgado MD
--- NOTE | 2016-07-22 12:55 | PROGRESS NOTE ---
DATE: 07/21/2016 SUBJECTIVE: Patient is feeling fine, has no complaints. OBJECTIVE: Vital Signs: Vital signs are noted and stable. O2 saturations is 99%. HEENT: No scleral icterus or conjunctival pallor. Neck: Supple. Trachea in the midline. Heart: Normal. Lungs: Normal. Abdomen: Soft, nontender. Extremities: Evidence of bowel sounds. Laboratory Data: No change. IMPRESSION: 1. Sepsis secondary to E. coli of unknown origin. 2. Chronic pancreatitis. 3. Diabetes. 4. Chronic kidney disease. 5. Gastroesophageal reflux. 6. Hypertension. PLAN: While his care is continued by the renal and infectious disease, I am planning to do a colonoscopy Friday. -4 cc: Nena Cooper MD
--- NOTE | 2016-07-22 14:18 | PROGRESS NOTE ---
DATE: 07/22/2016 SUBJECTIVE: The patient was seen and examined, no complaint. Answered question appropriately. OBJECTIVE: Vital Signs: Blood pressure 159/86, pulse of 82, respiration 18, temperature 98.2 degrees, saturations of 95% on room air. General Appearance: Cachectic black male in no acute distress. HEENT: Anicteric. Clear conjunctivae. Neck: Supple. No JVD. No bruit. Cardiovascular: S1, S2. Normal rate and rhythm. No murmur, rubs, or gallops. Pulmonary: Clear to auscultation bilaterally. GI: Soft, nontender, nondistended. Normoactive bowel sounds. Musculoskeletal: No clubbing, cyanosis, or edema. LABORATORY: His white count 7.09, hemoglobin 6.8, hematocrit 20.9, platelets of 220,000. His chemistry, sodium 134, potassium 5.4, chloride 101, bicarb 19, BUN 15, creatinine 1.6 and glucose of 74. ASSESSMENT/PLAN: This is a 75-year-old admitted to the hospital for altered mental status. 1. Altered mental status resolved probably secondary to Escherichia coli urinary tract infection. The urine grew out extended spectrum beta-lactamase. Will put him on isolation. Will change his antibiotics to meropenem for better coverage. 2. Anemia probably of chronic disease. Will give the patient 1 unit of red blood cell. 3. Diabetes type 2. Will continue sliding scale insulin for now. 4. Chronic kidney disease stage 3. Will start the patient on IV fluid. 5. Hyperkalemia. Will monitor the patient for now. Will recheck his potassium in the morning, if worsening will give him a dose of lactulose or Kayexalate. 6. Failure to thrive and severe protein calorie deficient. Will continue to encourage p.o. intake. The patient is on Glucerna, Boost.
[2016-07-22] MEDS: INVANZ 1 GM/NS 1 GM/50 ML IVPB IV SCH (15:22)
[2016-07-22] MEDS ORDERED: GOLYTELY PO ONE (16:00)
[2016-07-22] MEDS ORDERED: NS 250 ML IV SCH (19:38)
[2016-07-22] MEDS: SODIUM CHLORIDE 0.9% INJ SCH (20:08)
[2016-07-22] MEDS: PROTONIX IV SCH (20:08)
[2016-07-23] MEDS: DUONEB (A & A) INH SCH ×6 (03:32→22:49)
[2016-07-23 05:59] LABS: MANUAL DIFF NEEDED? NO
[2016-07-23] MEDS: HUMALOG SUBQ SCH ×4 (06:13→21:45)
[2016-07-23 06:28] LABS: BASO% 0.1 % (0.0-0.8); EOS# 0.03 X1000 (0.0-0.7); EOS% 0.2 % (0.0-10.0); HEMATOCRIT 28.5 % (42.0-52.0); HEMOGLOBIN 9.4 g/dL (14.0-18.0); IMM GRAN# 0.06 X1000 (0.0-0.04); IMM GRAN% 0.4 % (0.0-0.5); LYMPH# 1.54 X1000 (1.2-3.4); LYMPH% 11.4 % (20.5-51.1); MCH 26.6 PG (27-31); MCV 80.7 FL (81-99); MONO# 0.51 X1000 (0.11-0.59); MONO% 3.8 % (1.7-9.3); MPV 10.7 FL (7.4-10.4); NEUT% 84.1 % (42.2-75.2); PLT 256 X1000 (130-400); RBC 3.53 XMIL (4.7-6.1)
[2016-07-23 07:03] LABS: CALCIUM 8.3 mg/dL (8.8-10.2); POTASSIUM 5.5 mmol/L (3.5-5.1)
--- NOTE | 2016-07-23 08:38 | PROGRESS NOTE ---
DATE: 07/23/2016 PRESENT ILLNESS: The patient has an extended spectrum beta lactamase producing E coli bacteremia. The exact origin of this bacteremia is uncertain to me. MEDICATIONS: This is day 5 of treatment with ertapenem since his 1st blood cultures became negative. PHYSICAL EXAMINATION: Vital Signs: Temperature is 97.6 degrees, pulse 80, respirations 17,blood pressure 165/86. General: This is a chronically ill-appearing, elderly male. Today he is more alert. He is eating breakfast. Lungs: Clear to auscultation. Cardiovascular : Regular heart rate. Abdomen and flank: Soft and nontender. LAB AND X-RAY: The CBC for today shows a white count of 1350, hemoglobin 9.4, and platelet count 256,000. Creatinine is 1.4. GFR is 60. Blood cultures are sterile. ASSESSMENT AND PLAN: Dr. Vergara discontinued ertapenem and then put the patient on meropenem which should have good activity against the Escherichia coli organism. This is day 5 of treatment for that bacteremia. 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 COMORBIDITIES: Include diabetes mellitus, abdominal aortic aneurysm combined with the presence of endograft in the aorta. cc: Edwin Wbeer MD MTDD
[2016-07-23] MEDS: MIRALAX PO SCH ×2 (09:58→21:44)
[2016-07-23] MEDS: NICODERM PATCH TD SCH (10:05)
[2016-07-23] MEDS: LOPRESSOR PO SCH ×2 (10:05→21:45)
[2016-07-23] MEDS: DULCOLAX PO SCH (10:05)
[2016-07-23] MEDS: NORVASC PO SCH (10:18)
--- NOTE | 2016-07-23 10:19 | PROGRESS NOTE ---
DATE: 07/23/2016 SUBJECTIVE: The patient is doing well. He is awake, alert and oriented. Answers questions appropriately. No complaint. OBJECTIVE: Vital signs: Blood pressure is 183/98, pulse of 84, respirations 16, temperature 97.7 degrees, saturation 100% on room air. General appearance: Thin, cachectic, black male in no acute distress. HEENT: Anicteric sclerae. Clear conjunctivae. Neck: Supple. No JVD. No bruit. Cardiovascular: S1, S2. Normal rate and rhythm. No murmur, rubs, or gallops. Pulmonary: Clear to auscultation bilaterally. GI: Soft, nontender, nondistended. Normoactive bowel sounds. Musculoskeletal: No clubbing, cyanosis, or edema. LABORATORY: White blood count 13.53, hemoglobin 9.4, hematocrit of 28.5, platelets of 256. Chemistry: Sodium 136, potassium 5.5, chloride 103, bicarbonate 23, BUN 13, creatinine 1.4, glucose of 78. ASSESSMENT/PLAN: A 75-year-old admitted to the hospital with altered mental status: 1. Altered mental status resolved. The patient does have Escherichia coli bacteremia, extended spectrum beta lactamase, and has been on ertapenem, a 4-part for a total of [address] Weber. The patient refused a colonoscopy and will place a PICC line. Dr. Weber will put in a consult for continued home infusion antibiotics. Once we get his potassium under control and his blood under control, the patient should be able to go home possibly tomorrow. 2. Hypertension. The patient is on Norvasc twice a day. We changed it to just once a day 10 mg instead. Seeing his potassium elevated, this inhibited us to add any angiotensin-converting enzyme inhibitor for blood pressure. Will add Lopressor twice a day, and we will monitor his blood pressure. If doing well by tomorrow, we will plan to discharge the patient home. 3. Diabetes. Will continue sliding scale insulin. CODE STATUS: Patient is a full code.
[2016-07-23 10:32] LABS: INR 0.99; PROTIME 10.4 Seconds (9.2-11.7)
[2016-07-23] MEDS ORDERED: NS 250 ML ONE (10:59)
--- NOTE | 2016-07-23 12:58 | Diag Imaging Result Doc PS360 ---
EXAM: CHEST-PORTABLE INDICATION: L PICC placement confirmation TECHNIQUE: One view COMPARISON: 07/14/2016 FINDINGS: There is a newly placed left PICC line. The tip projects over the lower SVC just superior to the atriocaval junction in the expected position. The lungs are grossly clear. There is no discrete pleural fluid collection. The cardiomediastinal silhouette and central vasculature are grossly unremarkable. IMPRESSION: Interval placement of left PICC line. Essentially stable chest, otherwise. Electronically signed by Catrachito Jones 07/23/2016 12:56 PM
[2016-07-23] MEDS: INVANZ 1 GM/NS 1 GM/50 ML IVPB IV SCH (14:10)
--- NOTE | 2016-07-23 14:20 | CONSULTATION ---
DATE OF CONSULTATION: 07/23/2016 HISTORY OF PRESENT ILLNESS/PLAN: The patient is a 75-year-old male who is well known to our service. He was readmitted with nausea with vomiting and failure to thrive. He has been found to have sepsis secondary to Escherichia coli. However, the patient refuses all evaluation at this time. Therefore, we will sign off. Thank you for allowing us to participate in his care. Please feel free to contact us if there are any additional questions or concerns or if the patient changes his mind in terms of his evaluation. cc: MD Braxton Vera MD Reginald D. Gladish, MD
[2016-07-23] MEDS: PROTONIX IV SCH (21:44)
[2016-07-23] MEDS: SODIUM CHLORIDE 0.9% INJ SCH (21:45)
[2016-07-24] MEDS: DUONEB (A & A) INH SCH ×2 (03:20→07:57)
[2016-07-24] MEDS: HUMALOG SUBQ SCH ×2 (06:40→12:36)
[2016-07-24 06:56] LABS: MANUAL DIFF NEEDED? NO
[2016-07-24 07:11] LABS: BASO% 0.2 % (0.0-0.8); EOS# 0.13 X1000 (0.0-0.7); HEMATOCRIT 25.1 % (42.0-52.0); HEMOGLOBIN 8.2 g/dL (14.0-18.0); IMM GRAN# 0.02 X1000 (0.0-0.04); IMM GRAN% 0.3 % (0.0-0.5); LYMPH# 1.72 X1000 (1.2-3.4); MCH 26.6 PG (27-31); MCHC 32.7 g/dL (33-37); MCV 81.5 FL (81-99); MONO# 0.46 X1000 (0.11-0.59); MONO% 7.2 % (1.7-9.3); MPV 10.3 FL (7.4-10.4); NEUT% 63.3 % (42.2-75.2); PLT 278 X1000 (130-400); RBC 3.08 XMIL (4.7-6.1)
[2016-07-24 07:38] LABS: CALCIUM 8.2 mg/dL (8.8-10.2); POTASSIUM 4.8 mmol/L (3.5-5.1)
--- NOTE | 2016-07-24 08:37 | PROGRESS NOTE ---
DATE: 07/24/2016 PRESENT ILLNESS: The patient has an extended-spectrum beta lactamase producing Escherichia coli bacteremia, the exact origin of which is uncertain. MEDICATIONS: This is day 6 of treatment with ertapenem since the patient's first blood cultures became negative. PHYSICAL EXAMINATION: Vital Signs: Temperature is 98.5 degrees, pulse 79, respirations 16, blood pressure 159/95. General: This is a chronically ill-appearing, elderly male. He is lethargic, but he was fully arousable also. He did follow request to move his extremities , although he appeared to be very weak. Lungs: Clear to auscultation. Cardiovascular: Regular heart rate. Abdomen and flank: Soft and nontender. IMAGING AND LABORATORY DATA: CBC shows a white count of 6380, hemoglobin 8.2, and platelet count 278,000. Creatinine is 1.4. The GFR is 60. Repeat blood cultures are sterile. ASSESSMENT AND PLAN: Yesterday, the patient was supposed to have colonoscopy, but he refused it. Therefore, I think we just need to continue the patient's treatment for a total of 6 weeks because he has an aortic aneurysm and also has an endograft in place, both of which or one of which could have become infected while the patient was bacteremic. The patient's comorbidities include diabetes mellitus, abdominal aortic aneurysm, the presence of an endograft in the aorta and malnutrition. As mentioned above, the patient refused colonoscopy. Therefore, I plan to continue ertapenem at a dose of 1 gram intravenously daily for a total of 6 weeks. Following that, there really is not a good oral alternative that I could put the patient on for chronic suppressive therapy in case the endograft or aneurysm became infected during the patient's bacteremia. If a reliable place for the patient to go home to is available, then I think he can be discharged. Obviously, he will need a lot of help taking care of himself and giving himself the antibiotic wherever he goes. cc: Edwin Weber MD MTDKev
[2016-07-24] MEDS: NICODERM PATCH TD SCH (09:48)
[2016-07-24] MEDS: MIRALAX PO SCH (09:48)
[2016-07-24] MEDS: LOPRESSOR PO SCH (09:49)
[2016-07-24] MEDS: NORVASC PO SCH (09:49)
[2016-07-24] MEDS: DULCOLAX PO SCH (09:49)
--- NOTE | 2016-07-24 12:05 | DISCHARGE SUMMARY ---
ADMISSION DATE: 07/14/2016 DISCHARGE DATE: 07/24/2016 CONSULTATIONS: 1. Dr. Fermín Toledo with Cardiology. 2. Dr. Cooper with Gastroenterology. 3. Dr. Edwin Weber with Infectious Disease. PERTINENT PROCEDURES: 1. Head CT showed chronic ischemic microvascular disease which has apparently progressed slightly, particularly with regard to the right cerebellar hemisphere since previous study on 06/12/2016. 2. Echocardiogram showed an EF of 60 to 65%. 3. Abdomen and pelvis CT showed constipation with fecal impaction. Evidence of chronic pancreatitis. 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 Bilateral pleural effusion and basilar atelectasis. Mild anasarca. 4. Abdominal ultrasound showed small distal abdominal aortic aneurysm. Increased renal echotexture indicative of medical renal disease. DISCHARGE DIAGNOSES: 1. Sepsis secondary to Escherichia coli, extended spectrum beta-lactamase bacteremia. The patient will continue on ertapenem at a dose of 1 g IV daily for a total of 6 weeks and will be followed by Dr. Edwin Weber. Following that, per Dr. Weber a good oral alternative, there was not a good oral alternative but the patient could be put on chronic suppressive therapy in case endografts or aneurysm became infected during the patient's bacteremia. He will be discharged with a PICC line to [place]. 2. Nausea, vomiting, failure to thrive. Followed by GI. Refuses colonoscopy. 3. Chronic pancreatitis. Aware. 4. Diabetes mellitus type 2. Continue home medications. 5. Chronic kidney disease stage 3. Stable. 6. Gastroesophageal reflux disease. Continue PPI. 7. Hypertension. Continue home medications. 8. Altered mental status. Resolved. 9. Left dorsal foot diabetic wound. Followed by Dr. Israel with plans for skin grafting and will be placed on hold. 10. Abdominal aortic aneurysm status post repair. 11. Chronic obstructive pulmonary disease without exacerbation. 12. Gout. 13. Hyperlipidemia. HOSPITAL COURSE: Mr. Michelle is a 75-year-old male, well known to our service. Last discharged on 06/15/2016. He was discharged with questionable syncopal episode with a fall and head injury. At that time, he had a very extensive workup which did not reveal anything acute. He came into the ED after he was sitting at the breakfast table eating breakfast with his family and he essentially had loss of consciousness, a blank stare, and went minimally responsive, and finally became diaphoretic. At that point EMS was called. He had recently been started on lisinopril daily for renal protection as per Dr. Keller and his systolic blood pressures had been running in the 90s per family report. In the ED, his blood pressure was 87/42. Head CT did not show anything acute. Lactic acid was noted to be 6.6 and he spiked a fever 101.5, consistent with sepsis. He was started on the protocol. However, he did not have a white count. His chest x-ray did not show any signs of infection. His urine was clean. He was again initiated on IV fluids, mcintyre cultured, started broad-spectrum antibiotics, with a cardiology consult. The patient's blood culture was positive again for gram-negative rods. Cardiology felt this was the reason for his near syncope. He was continued on all of his cardiac medications. Dr. Edwin Weber was consulted. They felt there was a possibility that the bacteremia was arising from an intestinal source, such as a colon lesion or from the biliary system. We did consult GI; however, the patient refuses any type of GI workup. So he was continued on IV antibiotics until his 1st blood cultures came back negative. [employer] was consulted for rehab placement. Patient worked with physical therapy. He will be discharged with a PICC line and IV antibiotics, ertapenem at a dose of 1 g IV daily for a total of 6 weeks. VITAL SIGNS: At time of discharge, temperature is 98.5 degrees, heart rate 80, respiration 17, blood pressure 159/95, O2 is 100% on room air. DISCHARGE DIET: Diabetic with Glucerna t.i.d. DISCHARGE MEDICATIONS: As per Dr. Ad Vergara. 1. Norvasc 10 mg p.o. daily. 2. Atorvastatin calcium 40 mg p.o. daily. 3. Coreg 12.5 mg p.o. q.12 hours. 4. Apresoline 75 mg p.o. t.i.d. 5. Levemir 15 units subcutaneously daily. 6. MiraLAX 17 g p.o. b.i.d. 7. Carafate liquid 1 g q.6 hours. 8. Ultram 50 mg p.o. q.6 hours p.r.n. FOLLOW UP: Patient is being discharged to [facility]. He will need to follow up with Dr. Edwin Weber on August 14 at 9:15 a.m. He will continue to receive 6 weeks of IV antibiotics through his PICC line with 1 g of ertapenem IV q.24 hours. He will remain on a diabetic diet with Glucerna shakes each meal, as well as continue with physical therapy. Patient can return to the ED for any worsening of symptoms. DISCHARGE TIME: 35 minutes. Dictated by EDEN Schwarz for Braxton Vergara MD Addendum: I personally evaluated and examined the patient in conjunction to the [employer] and agreed with his assessments and disposition KELVIN
--- NOTE | 2016-07-24 12:20 | PROGRESS NOTE ---
DATE: 07/24/2016 SUBJECTIVE: The patient is feeling well. He is eating and answered questions appropriately. Denies having any fever or chills. OBJECTIVE: Vital Signs: Blood pressure 159/95, pulse of 80, respirations 17, temperature of 98.5 degrees, saturation 100% on room air. General Appearance: Thin, cachectic, black male, in no acute distress HEENT: Anicteric sclerae. Clear conjunctivae. Neck: Supple. No JVD. No bruit. Cardiovascular: S1 and S2. Normal rate and rhythm. No murmur, rubs, or gallops. Pulmonary: Clear to auscultation bilaterally. GI: Soft, nontender, nondistended. Normoactive bowel sounds. Musculoskeletal: No clubbing, cyanosis, or edema. Laboratory: Today, white count 6.38, hemoglobin 8.2, hematocrit of 25.1, platelets of 278,000. Chemistry: Sodium 133, potassium 4.8, chloride 101, bicarb 24, BUN 13, creatinine 1.4, glucose of 86. ASSESSMENT AND PLAN: This is a 75-year-old, black male admitted to the hospital for unresponsiveness and was found to have E. coli with extended-spectrum B-lactamase bacteremia. Extended-spectrum B-lactamase bacteremia. Infectious disease is following. Recommend to be on Ancef for 6 weeks total negative blood culture. We sent the patient to the [facility] rehab for therapy and to continue antibiotics. When the patient goes home, he will be continued with [facility] to complete his antibiotics. He has a peripherally inserted central catheter line in place. The plan will be discharge the patient to a snf today.
[2016-07-24] MEDS: INVANZ 1 GM/NS 1 GM/50 ML IVPB IV SCH (14:02)
[2016-07-24 14:28] VITALS: BP 136/78
== END 2016-07-24 15:15 ==
LOC: ED 10:45 → SUATTDRO 13:53 → 4N 13:53 → 3N 07-22 17:46
PROVIDERS: ATTEND Internal Medicine